=== PATIENT | male | born 1950 | race Two or more races ===

== ENCOUNTER 2016-07-21 12:15 | Outpatient (CLI) | payer MEDICARE, OTHER | END 2016-07-21 23:59 | disposition home or self-care (01) | LOC: WOU 12:15 | PROVIDERS: ATTEND Surgery | DX: E11.622 Type 2 diabetes mellitus with other skin ulcer (principal); L97.224 Non-pressure chronic ulcer of left calf with necrosis of bone; E11.42 Type 2 diabetes mellitus with diabetic polyneuropathy; E11.69 Type 2 diabetes mellitus with other specified complication; M86.462 Chronic osteomyelitis with draining sinus, left tibia and fibula; Z87.891 Personal history of nicotine dependence; I10 Essential (primary) hypertension; Z87.828 Personal history of other (healed) physical injury and trauma; E11.51 Type 2 diabetes mellitus with diabetic peripheral angiopathy without gangrene | CPT/HCPCS: 11044; A6402 ==

== ENCOUNTER 2016-07-22 10:01 | Outpatient (CLI) | payer MEDICARE, OTHER | END 2016-07-22 23:59 | disposition home or self-care (01) | LOC: LAB 10:01 | PROVIDERS: ATTEND Internal Medicine Infectious Disease | DX: R19.7 Diarrhea, unspecified (principal) ==

== ENCOUNTER 2016-07-28 12:50 | Outpatient (CLI) | payer MEDICARE, OTHER | END 2016-07-28 23:59 | disposition home or self-care (01) | LOC: WOU 12:50 | PROVIDERS: ATTEND Surgery | DX: E11.622 Type 2 diabetes mellitus with other skin ulcer (principal); L97.224 Non-pressure chronic ulcer of left calf with necrosis of bone; E11.42 Type 2 diabetes mellitus with diabetic polyneuropathy; E11.69 Type 2 diabetes mellitus with other specified complication; M86.462 Chronic osteomyelitis with draining sinus, left tibia and fibula; Z89.512 Acquired absence of left leg below knee; Z87.891 Personal history of nicotine dependence; S81.802S Unspecified open wound, left lower leg, sequela; X95.9XXS Assault by unspecified firearm discharge, sequela; Z18.10 Retained metal fragments, unspecified | CPT/HCPCS: 15271; A6402 ==

== ENCOUNTER 2016-08-04 10:24 | Outpatient (CLI) | payer MEDICARE, OTHER | END 2016-08-04 23:59 | disposition home or self-care (01) | LOC: WOU 10:24 | PROVIDERS: ATTEND Surgery | DX: E11.622 Type 2 diabetes mellitus with other skin ulcer (principal); L97.224 Non-pressure chronic ulcer of left calf with necrosis of bone; E11.42 Type 2 diabetes mellitus with diabetic polyneuropathy; E11.69 Type 2 diabetes mellitus with other specified complication; M86.462 Chronic osteomyelitis with draining sinus, left tibia and fibula; I10 Essential (primary) hypertension; H40.9 Unspecified glaucoma; Z89.512 Acquired absence of left leg below knee | CPT/HCPCS: 15271; A6402; Q4131 ==

== ENCOUNTER 2016-08-11 10:50 | Outpatient (CLI) | payer MEDICARE, OTHER | END 2016-08-11 23:59 | disposition home or self-care (01) | LOC: WOU 10:50 | PROVIDERS: ATTEND Surgery | DX: T87.89 Other complications of amputation stump (principal); E11.622 Type 2 diabetes mellitus with other skin ulcer; L97.224 Non-pressure chronic ulcer of left calf with necrosis of bone; E11.42 Type 2 diabetes mellitus with diabetic polyneuropathy; E11.69 Type 2 diabetes mellitus with other specified complication; M86.462 Chronic osteomyelitis with draining sinus, left tibia and fibula; Z89.512 Acquired absence of left leg below knee; I10 Essential (primary) hypertension; Z87.891 Personal history of nicotine dependence; Z18.10 Retained metal fragments, unspecified; B95.61 Methicillin susceptible Staphylococcus aureus infection as the cause of diseases classified elsewhere; B96.89 Other specified bacterial agents as the cause of diseases classified elsewhere | CPT/HCPCS: 15271; A6402; Q4131 ×2 ==

== ENCOUNTER 2016-08-18 12:56 | Outpatient (CLI) | payer MEDICARE, OTHER | END 2016-08-18 23:59 | disposition home or self-care (01) | LOC: WOU 12:56 | PROVIDERS: ATTEND Surgery | DX: E11.622 Type 2 diabetes mellitus with other skin ulcer (principal); L97.824 Non-pressure chronic ulcer of other part of left lower leg with necrosis of bone; Z89.512 Acquired absence of left leg below knee; I10 Essential (primary) hypertension; Z87.828 Personal history of other (healed) physical injury and trauma; Z87.891 Personal history of nicotine dependence; E11.9 Type 2 diabetes mellitus without complications; M86.462 Chronic osteomyelitis with draining sinus, left tibia and fibula; E11.51 Type 2 diabetes mellitus with diabetic peripheral angiopathy without gangrene | CPT/HCPCS: 15271; A6402; Q4131 ×2 ==

== ENCOUNTER 2016-08-25 12:37 | Outpatient (CLI) | payer MEDICARE, OTHER | END 2016-08-25 23:59 | disposition home or self-care (01) | LOC: WOU 12:37 | PROVIDERS: ATTEND Surgery | DX: E11.622 Type 2 diabetes mellitus with other skin ulcer (principal); L97.224 Non-pressure chronic ulcer of left calf with necrosis of bone; E11.42 Type 2 diabetes mellitus with diabetic polyneuropathy; E11.69 Type 2 diabetes mellitus with other specified complication; M86.462 Chronic osteomyelitis with draining sinus, left tibia and fibula; Z89.512 Acquired absence of left leg below knee; Z87.891 Personal history of nicotine dependence | CPT/HCPCS: 11044; A6402 ==

== ENCOUNTER 2016-09-01 12:40 | Outpatient (CLI) | payer MEDICARE, OTHER | END 2016-09-01 23:59 | disposition home or self-care (01) | LOC: WOU 12:40 | PROVIDERS: ATTEND Surgery | DX: E11.622 Type 2 diabetes mellitus with other skin ulcer (principal); L97.824 Non-pressure chronic ulcer of other part of left lower leg with necrosis of bone; Z89.512 Acquired absence of left leg below knee; Z87.891 Personal history of nicotine dependence; E11.69 Type 2 diabetes mellitus with other specified complication; M86.462 Chronic osteomyelitis with draining sinus, left tibia and fibula; I10 Essential (primary) hypertension; Z18.10 Retained metal fragments, unspecified; B95.61 Methicillin susceptible Staphylococcus aureus infection as the cause of diseases classified elsewhere; B96.89 Other specified bacterial agents as the cause of diseases classified elsewhere | CPT/HCPCS: 11044; A6402 ==

== ENCOUNTER 2016-09-08 11:36 | Outpatient (CLI) | payer MEDICARE, OTHER | END 2016-09-08 23:59 | disposition home or self-care (01) | DX: E11.622 Type 2 diabetes mellitus with other skin ulcer (principal); L97.224 Non-pressure chronic ulcer of left calf with necrosis of bone; Z89.512 Acquired absence of left leg below knee; E11.42 Type 2 diabetes mellitus with diabetic polyneuropathy; E11.69 Type 2 diabetes mellitus with other specified complication; T14.90 Injury, unspecified; X95.9XXS Assault by unspecified firearm discharge, sequela; Z18.10 Retained metal fragments, unspecified; Z87.891 Personal history of nicotine dependence; I10 Essential (primary) hypertension; M86.462 Chronic osteomyelitis with draining sinus, left tibia and fibula; E11.51 Type 2 diabetes mellitus with diabetic peripheral angiopathy without gangrene | CPT/HCPCS: 11044; A6402 ==

== ENCOUNTER 2016-09-12 10:31 | Outpatient (CLI) | payer MEDICARE, OTHER ==
[2016-09-12 10:58] LABS: BASOPHILS % (AUTO) 0.3 % (0.0-2.0); DIFF TOTAL % 100 %; EOSINOPHILS # (AUTO) 0.1 /CMM (0.0-0.7); HEMATOCRIT 38 % (39-51); HEMOGLOBIN 12.6 g/dL (13.5-17.5); LYMPHOCYTES # (AUTO) 1.3 /CMM (0.8-4.8); LYMPHOCYTES % (AUTO) 21.9 % (20.0-44.0); MEAN CORPUSCULAR HEMOGLOBIN 30 PG (26.0-33.0); MEAN CORPUSCULAR HGB CONC 33 g/dl (31.0-36.0); MEAN CORPUSCULAR VOLUME 91 fL (80-96); MONOCYTES # (AUTO) 0.3 /CMM (0.1-1.30); MONOCYTES % (AUTO) 5.2 % (2.0-12.0); NEUTROPHILS # (AUTO) 4.4 /CMM (1.8-8.9); NEUTROPHILS % (AUTO) 71.6 % (43.0-81.0); PLATELET COUNT (AUTO) 230 /CMM (150-450); RED BLOOD CELL COUNT(AUTO) 4.19 MIL/uL (4.5-6.0); WHITE BLOOD COUNT (AUTO) 6.1 K/uL (4.3-11.0)
[2016-09-12 11:12] LABS: ALBUMIN 3.9 g/dL (3.4-5.0); BILIRUBIN,TOTAL 0.5 mg/dL (0.2-1.0); CALCIUM, SERUM 9.1 mg/dL (8.5-10.1); POTASSIUM 4.8 mmol/L (3.5-5.1); TOTAL PROTEIN, SERUM 6.9 g/dL (6.4-8.2)
[2016-09-12 11:16] LABS: INR 0.99 (0.87-1.13); PROTHROMBIN TIME 10.7 SECS (9.5-12.7)
== END 2016-09-12 23:59 | disposition home or self-care (01) ==
LOC: LAB 10:31
PROVIDERS: ATTEND Surgery
DX: Z01.818 Encounter for other preprocedural examination (principal); T81.89XA Other complications of procedures, not elsewhere classified, initial encounter
CPT/HCPCS: 36415; 71020-TC; 80053-TC; 85025-TC; 85730-TC

== ENCOUNTER 2016-09-12 12:50 | Outpatient (CLI) | payer MEDICARE, OTHER | END 2016-09-12 23:59 | disposition home or self-care (01) | LOC: WOU 12:50 | PROVIDERS: ATTEND Surgery | DX: E11.622 Type 2 diabetes mellitus with other skin ulcer (principal); L97.224 Non-pressure chronic ulcer of left calf with necrosis of bone; E11.42 Type 2 diabetes mellitus with diabetic polyneuropathy; E11.69 Type 2 diabetes mellitus with other specified complication; M86.462 Chronic osteomyelitis with draining sinus, left tibia and fibula; T14.90 Injury, unspecified; X95.9XXS Assault by unspecified firearm discharge, sequela; Z18.10 Retained metal fragments, unspecified; Z87.891 Personal history of nicotine dependence; I10 Essential (primary) hypertension; E11.51 Type 2 diabetes mellitus with diabetic peripheral angiopathy without gangrene | CPT/HCPCS: 11044; A6402 ==

== ENCOUNTER 2016-09-15 12:54 | Outpatient (CLI) | payer MEDICARE, OTHER | END 2016-09-15 23:59 | disposition home or self-care (01) | LOC: WOU 12:54 | PROVIDERS: ATTEND Surgery | DX: E11.622 Type 2 diabetes mellitus with other skin ulcer (principal); L97.224 Non-pressure chronic ulcer of left calf with necrosis of bone; E11.42 Type 2 diabetes mellitus with diabetic polyneuropathy; E11.69 Type 2 diabetes mellitus with other specified complication; M86.462 Chronic osteomyelitis with draining sinus, left tibia and fibula; T14.90 Injury, unspecified; X95.9XXS Assault by unspecified firearm discharge, sequela; Z18.10 Retained metal fragments, unspecified; Z87.891 Personal history of nicotine dependence; I10 Essential (primary) hypertension; Z89.512 Acquired absence of left leg below knee; K11.20 Sialoadenitis, unspecified; E11.51 Type 2 diabetes mellitus with diabetic peripheral angiopathy without gangrene | CPT/HCPCS: 11044; A6402 ==

== ENCOUNTER 2016-09-22 12:31 | Outpatient (CLI) | payer MEDICARE, OTHER | END 2016-09-22 23:59 | disposition home or self-care (01) | LOC: WOU 12:31 | PROVIDERS: ATTEND Surgery | DX: E11.622 Type 2 diabetes mellitus with other skin ulcer (principal); L97.224 Non-pressure chronic ulcer of left calf with necrosis of bone; E11.42 Type 2 diabetes mellitus with diabetic polyneuropathy; E11.69 Type 2 diabetes mellitus with other specified complication; M86.462 Chronic osteomyelitis with draining sinus, left tibia and fibula; T14.90 Injury, unspecified; X95.9XXS Assault by unspecified firearm discharge, sequela; Z18.10 Retained metal fragments, unspecified; Z87.891 Personal history of nicotine dependence; I10 Essential (primary) hypertension; Z89.512 Acquired absence of left leg below knee; K11.20 Sialoadenitis, unspecified; E11.51 Type 2 diabetes mellitus with diabetic peripheral angiopathy without gangrene; Z79.02 Long term (current) use of antithrombotics/antiplatelets; Z79.899 Other long term (current) drug therapy | CPT/HCPCS: 11044; A6402 ==

== ENCOUNTER 2016-09-27 10:32 | Outpatient (CLI) | payer MEDICARE, OTHER ==
[2016-09-27 11:07] LABS: BASOPHILS % (AUTO) 0.1 % (0.0-2.0); DIFF TOTAL % 100 %; EOSINOPHILS # (AUTO) 0.1 /CMM (0.0-0.7); EOSINOPHILS % (AUTO) 1.1 % (0.0-6.0); HEMATOCRIT 38 % (39-51); HEMOGLOBIN 12.5 g/dL (13.5-17.5); LYMPHOCYTES # (AUTO) 1.4 /CMM (0.8-4.8); LYMPHOCYTES % (AUTO) 21.5 % (20.0-44.0); MEAN CORPUSCULAR HEMOGLOBIN 30 PG (26.0-33.0); MEAN CORPUSCULAR HGB CONC 33 g/dl (31.0-36.0); MEAN CORPUSCULAR VOLUME 92 fL (80-96); MONOCYTES # (AUTO) 0.3 /CMM (0.1-1.30); MONOCYTES % (AUTO) 4.3 % (2.0-12.0); NEUTROPHILS # (AUTO) 4.6 /CMM (1.8-8.9); PLATELET COUNT (AUTO) 222 /CMM (150-450); RED BLOOD CELL COUNT(AUTO) 4.15 MIL/uL (4.5-6.0); WHITE BLOOD COUNT (AUTO) 6.3 K/uL (4.3-11.0)
[2016-09-27 11:15] LABS: CALCIUM, SERUM 9.2 mg/dL (8.5-10.1); CREATININE 1.1 mg/dL (0.6-1.3)
[2016-09-27 11:38] LABS: PROTHROMBIN TIME 10.8 SECS (9.5-12.7)
== END 2016-09-27 23:59 | disposition home or self-care (01) ==
LOC: LAB 10:32
PROVIDERS: ATTEND Surgery
DX: T81.89XA Other complications of procedures, not elsewhere classified, initial encounter (principal)
CPT/HCPCS: 36415; 80048-TC; 85025-TC; 85610-TC; 85730-TC

== ENCOUNTER 2016-09-29 07:35 | Day surgery (SDC) | payer MEDICARE, OTHER | END 2016-09-29 13:00 | disposition home or self-care (01) | LOC: DS 07:35 | PROVIDERS: ATTEND Surgery | DX: T87.81 Dehiscence of amputation stump (principal); M86.8X6 Other osteomyelitis, lower leg; Z89.512 Acquired absence of left leg below knee; I10 Essential (primary) hypertension | CPT/HCPCS: 27884; A6402 ×2; J1100; J2405; J2704; J3490 ×2 ==

== ENCOUNTER 2016-10-03 11:11 | Outpatient (CLI) | payer MEDICARE, OTHER | END 2016-10-03 23:59 | disposition home or self-care (01) | LOC: WOU 11:11 | PROVIDERS: ATTEND Surgery | DX: T87.81 Dehiscence of amputation stump (principal); E11.622 Type 2 diabetes mellitus with other skin ulcer; E11.42 Type 2 diabetes mellitus with diabetic polyneuropathy; E11.69 Type 2 diabetes mellitus with other specified complication; M86.462 Chronic osteomyelitis with draining sinus, left tibia and fibula; T14.90 Injury, unspecified; X95.9XXS Assault by unspecified firearm discharge, sequela; Z18.10 Retained metal fragments, unspecified; Z87.891 Personal history of nicotine dependence; E11.51 Type 2 diabetes mellitus with diabetic peripheral angiopathy without gangrene; Z79.02 Long term (current) use of antithrombotics/antiplatelets; Z79.899 Other long term (current) drug therapy; L97.224 Non-pressure chronic ulcer of left calf with necrosis of bone | CPT/HCPCS: 11043; A6402 ==

== ENCOUNTER 2016-10-10 10:15 | Outpatient (CLI) | payer MEDICARE, OTHER | END 2016-10-10 23:59 | disposition home or self-care (01) | LOC: WOU 10:15 | PROVIDERS: ATTEND Surgery | DX: T87.81 Dehiscence of amputation stump (principal); T86.828 Other complications of skin graft (allograft) (autograft); E11.622 Type 2 diabetes mellitus with other skin ulcer; L97.224 Non-pressure chronic ulcer of left calf with necrosis of bone; E11.42 Type 2 diabetes mellitus with diabetic polyneuropathy; E11.69 Type 2 diabetes mellitus with other specified complication; M86.462 Chronic osteomyelitis with draining sinus, left tibia and fibula; Z87.891 Personal history of nicotine dependence; T14.90 Injury, unspecified; X95.9XXS Assault by unspecified firearm discharge, sequela; Z18.10 Retained metal fragments, unspecified; Z79.02 Long term (current) use of antithrombotics/antiplatelets; Z79.899 Other long term (current) drug therapy; Z89.612 Acquired absence of left leg above knee; I10 Essential (primary) hypertension | CPT/HCPCS: 11044; A6253; A6402 ==

== ENCOUNTER 2016-10-17 12:53 | Outpatient (CLI) | payer MEDICARE, OTHER | END 2016-10-17 23:59 | disposition home or self-care (01) | LOC: WOU 12:53 | PROVIDERS: ATTEND Surgery | DX: T87.81 Dehiscence of amputation stump (principal); T86.828 Other complications of skin graft (allograft) (autograft); E11.622 Type 2 diabetes mellitus with other skin ulcer; L97.224 Non-pressure chronic ulcer of left calf with necrosis of bone; E11.42 Type 2 diabetes mellitus with diabetic polyneuropathy; E11.69 Type 2 diabetes mellitus with other specified complication; M86.462 Chronic osteomyelitis with draining sinus, left tibia and fibula; Z87.891 Personal history of nicotine dependence; T14.90 Injury, unspecified; X95.9XXS Assault by unspecified firearm discharge, sequela; Z18.10 Retained metal fragments, unspecified; Z79.02 Long term (current) use of antithrombotics/antiplatelets; Z79.899 Other long term (current) drug therapy; Z89.612 Acquired absence of left leg above knee; I10 Essential (primary) hypertension; E11.51 Type 2 diabetes mellitus with diabetic peripheral angiopathy without gangrene | CPT/HCPCS: 11044; A6402 ==

== ENCOUNTER 2016-10-24 12:55 | Outpatient (CLI) | payer MEDICARE, OTHER | END 2016-10-24 23:59 | disposition home or self-care (01) | LOC: WOU 12:55 | PROVIDERS: ATTEND Surgery | DX: T86.828 Other complications of skin graft (allograft) (autograft) (principal); T87.81 Dehiscence of amputation stump; Z89.512 Acquired absence of left leg below knee; Z87.891 Personal history of nicotine dependence; E11.42 Type 2 diabetes mellitus with diabetic polyneuropathy; T14.90 Injury, unspecified; X95.9XXS Assault by unspecified firearm discharge, sequela; Z18.10 Retained metal fragments, unspecified; Z79.02 Long term (current) use of antithrombotics/antiplatelets; I10 Essential (primary) hypertension; E11.51 Type 2 diabetes mellitus with diabetic peripheral angiopathy without gangrene; Z86.14 Personal history of Methicillin resistant Staphylococcus aureus infection; E11.9 Type 2 diabetes mellitus without complications; M86.462 Chronic osteomyelitis with draining sinus, left tibia and fibula; E11.622 Type 2 diabetes mellitus with other skin ulcer; L97.224 Non-pressure chronic ulcer of left calf with necrosis of bone | CPT/HCPCS: 11044; 87070; 87075; 87077; A6402 ==

== ENCOUNTER 2016-10-27 13:00 | Outpatient (CLI) | payer MEDICARE, OTHER | END 2016-10-27 23:59 | disposition home or self-care (01) | LOC: WOU 13:00 | PROVIDERS: ATTEND Surgery | DX: T87.81 Dehiscence of amputation stump (principal); T86.828 Other complications of skin graft (allograft) (autograft); E11.622 Type 2 diabetes mellitus with other skin ulcer; L97.224 Non-pressure chronic ulcer of left calf with necrosis of bone; E11.42 Type 2 diabetes mellitus with diabetic polyneuropathy; E11.69 Type 2 diabetes mellitus with other specified complication; M86.462 Chronic osteomyelitis with draining sinus, left tibia and fibula; Z89.512 Acquired absence of left leg below knee; Z87.891 Personal history of nicotine dependence; T14.90 Injury, unspecified; X95.9XXS Assault by unspecified firearm discharge, sequela; Z18.10 Retained metal fragments, unspecified; Z79.02 Long term (current) use of antithrombotics/antiplatelets; I10 Essential (primary) hypertension; Z86.14 Personal history of Methicillin resistant Staphylococcus aureus infection | CPT/HCPCS: 11044; A6197 ×3; A6402 ==

== ENCOUNTER 2016-10-28 13:59 | Outpatient (CLI) | payer MEDICARE, OTHER | END 2016-10-28 23:59 | disposition home or self-care (01) | LOC: WOU 13:59 | PROVIDERS: ATTEND Internal Medicine Infectious Disease | DX: E11.69 Type 2 diabetes mellitus with other specified complication (principal); M86.662 Other chronic osteomyelitis, left tibia and fibula; B95.62 Methicillin resistant Staphylococcus aureus infection as the cause of diseases classified elsewhere; M89.762 Major osseous defect, left lower leg; Z89.512 Acquired absence of left leg below knee; T14.90 Injury, unspecified; W34.00XS Accidental discharge from unspecified firearms or gun, sequela; E11.39 Type 2 diabetes mellitus with other diabetic ophthalmic complication; H40.9 Unspecified glaucoma; I10 Essential (primary) hypertension | CPT/HCPCS: A6197; A6402; G0463 ==

== ENCOUNTER 2016-11-03 13:40 | Outpatient (CLI) | payer MEDICARE, OTHER | END 2016-11-03 23:59 | disposition home or self-care (01) | LOC: WOU 13:40 | PROVIDERS: ATTEND Surgery | DX: T87.81 Dehiscence of amputation stump (principal); T86.828 Other complications of skin graft (allograft) (autograft); E11.622 Type 2 diabetes mellitus with other skin ulcer; L97.224 Non-pressure chronic ulcer of left calf with necrosis of bone; E11.42 Type 2 diabetes mellitus with diabetic polyneuropathy; E11.69 Type 2 diabetes mellitus with other specified complication; M86.462 Chronic osteomyelitis with draining sinus, left tibia and fibula; Z89.512 Acquired absence of left leg below knee; Z87.891 Personal history of nicotine dependence; T14.90 Injury, unspecified; X95.9XXS Assault by unspecified firearm discharge, sequela; Z18.10 Retained metal fragments, unspecified; Z79.02 Long term (current) use of antithrombotics/antiplatelets; I10 Essential (primary) hypertension; Z86.14 Personal history of Methicillin resistant Staphylococcus aureus infection; E11.51 Type 2 diabetes mellitus with diabetic peripheral angiopathy without gangrene | CPT/HCPCS: 11044; A6197; A6402 ==

== ENCOUNTER 2016-11-10 13:28 | Outpatient (CLI) | payer MEDICARE, OTHER | END 2016-11-10 23:59 | disposition home or self-care (01) | LOC: WOU 13:28 | PROVIDERS: ATTEND Surgery | DX: T87.81 Dehiscence of amputation stump (principal); T86.828 Other complications of skin graft (allograft) (autograft); E11.622 Type 2 diabetes mellitus with other skin ulcer; L97.224 Non-pressure chronic ulcer of left calf with necrosis of bone; E11.42 Type 2 diabetes mellitus with diabetic polyneuropathy; E11.69 Type 2 diabetes mellitus with other specified complication; M86.462 Chronic osteomyelitis with draining sinus, left tibia and fibula; Z89.512 Acquired absence of left leg below knee; Z87.891 Personal history of nicotine dependence; T14.90 Injury, unspecified; X95.9XXS Assault by unspecified firearm discharge, sequela; Z18.10 Retained metal fragments, unspecified; Z79.02 Long term (current) use of antithrombotics/antiplatelets; I10 Essential (primary) hypertension; Z86.14 Personal history of Methicillin resistant Staphylococcus aureus infection; E11.51 Type 2 diabetes mellitus with diabetic peripheral angiopathy without gangrene | CPT/HCPCS: 11044; A6197; A6402 ==

== ENCOUNTER 2016-11-17 12:57 | Outpatient (CLI) | payer MEDICARE, OTHER | END 2016-11-17 23:59 | disposition home or self-care (01) | LOC: WOU 12:57 | PROVIDERS: ATTEND Surgery | DX: T87.81 Dehiscence of amputation stump (principal); E11.622 Type 2 diabetes mellitus with other skin ulcer; L97.224 Non-pressure chronic ulcer of left calf with necrosis of bone; E11.42 Type 2 diabetes mellitus with diabetic polyneuropathy; E11.69 Type 2 diabetes mellitus with other specified complication; M86.462 Chronic osteomyelitis with draining sinus, left tibia and fibula; Z89.512 Acquired absence of left leg below knee; Z87.891 Personal history of nicotine dependence; T14.90 Injury, unspecified; X95.9XXS Assault by unspecified firearm discharge, sequela; Z18.10 Retained metal fragments, unspecified; Z79.02 Long term (current) use of antithrombotics/antiplatelets; I10 Essential (primary) hypertension; E11.51 Type 2 diabetes mellitus with diabetic peripheral angiopathy without gangrene | CPT/HCPCS: 11044; A6197; A6402 ==

== ENCOUNTER → 2016-11-24 | Outpatient (CLI) | payer MEDICARE, OTHER | END | disposition home or self-care (01) | LOC: WOU 10:43 | PROVIDERS: ATTEND Surgery | DX: T87.81 Dehiscence of amputation stump (principal); T86.828 Other complications of skin graft (allograft) (autograft); E11.622 Type 2 diabetes mellitus with other skin ulcer; L97.224 Non-pressure chronic ulcer of left calf with necrosis of bone; E11.69 Type 2 diabetes mellitus with other specified complication; M86.462 Chronic osteomyelitis with draining sinus, left tibia and fibula; Z89.512 Acquired absence of left leg below knee; Z87.891 Personal history of nicotine dependence; T14.90 Injury, unspecified; X95.9XXS Assault by unspecified firearm discharge, sequela; Z18.10 Retained metal fragments, unspecified; Z79.02 Long term (current) use of antithrombotics/antiplatelets; I10 Essential (primary) hypertension; E11.51 Type 2 diabetes mellitus with diabetic peripheral angiopathy without gangrene | CPT/HCPCS: 11044; A6197; A6402 ×2 ==

== ENCOUNTER 2016-12-01 13:55 | Outpatient (CLI) | payer MEDICARE, OTHER | END 2016-12-01 23:59 | disposition home or self-care (01) | LOC: WOU 13:55 | PROVIDERS: ATTEND Surgery | DX: T87.81 Dehiscence of amputation stump (principal); T86.828 Other complications of skin graft (allograft) (autograft); E11.622 Type 2 diabetes mellitus with other skin ulcer; L97.422 Non-pressure chronic ulcer of left heel and midfoot with fat layer exposed; E11.42 Type 2 diabetes mellitus with diabetic polyneuropathy; E11.69 Type 2 diabetes mellitus with other specified complication; M86.462 Chronic osteomyelitis with draining sinus, left tibia and fibula; Z89.512 Acquired absence of left leg below knee; Z87.891 Personal history of nicotine dependence; T14.90 Injury, unspecified; X95.9XXS Assault by unspecified firearm discharge, sequela; Z18.10 Retained metal fragments, unspecified; Z79.02 Long term (current) use of antithrombotics/antiplatelets; I10 Essential (primary) hypertension; E11.51 Type 2 diabetes mellitus with diabetic peripheral angiopathy without gangrene | CPT/HCPCS: 11044; A6197; A6402; G0277 ==

== ENCOUNTER 2016-12-08 12:40 | Outpatient (CLI) | payer MEDICARE, OTHER | END 2016-12-08 23:59 | disposition home or self-care (01) | LOC: WOU 12:40 | PROVIDERS: ATTEND Surgery | DX: T87.81 Dehiscence of amputation stump (principal); T86.828 Other complications of skin graft (allograft) (autograft); E11.622 Type 2 diabetes mellitus with other skin ulcer; E11.42 Type 2 diabetes mellitus with diabetic polyneuropathy; E11.69 Type 2 diabetes mellitus with other specified complication; M86.462 Chronic osteomyelitis with draining sinus, left tibia and fibula; Z89.512 Acquired absence of left leg below knee; Z87.891 Personal history of nicotine dependence; T14.90 Injury, unspecified; X95.9XXS Assault by unspecified firearm discharge, sequela; Z18.10 Retained metal fragments, unspecified; Z79.02 Long term (current) use of antithrombotics/antiplatelets; I10 Essential (primary) hypertension; E11.51 Type 2 diabetes mellitus with diabetic peripheral angiopathy without gangrene; L97.224 Non-pressure chronic ulcer of left calf with necrosis of bone | CPT/HCPCS: 11044; A6197; A6402 ==

== ENCOUNTER 2016-12-13 13:50 | Outpatient (CLI) | payer MEDICARE, OTHER ==
[2016-12-13 15:53] LABS: HEMATOCRIT 30 % (39-51); HEMOGLOBIN 10.1 g/dL (13.5-17.5); LYMPHOCYTES % (AUTO) 21.1 % (20.0-44.0); MEAN CORPUSCULAR HEMOGLOBIN 30 PG (26.0-33.0); MEAN CORPUSCULAR HGB CONC 34 g/dl (31.0-36.0); MEAN CORPUSCULAR VOLUME 88 fL (80-96); NEUTROPHILS % (AUTO) 70.7 % (43.0-81.0); PLATELET COUNT (AUTO) 117 /CMM (150-450); RDW COEFFICIENT OF VARIATION 14.9 (11.5-15.0); RED BLOOD CELL COUNT(AUTO) 3.38 MIL/uL (4.5-6.0); WHITE BLOOD COUNT (AUTO) 4.7 K/uL (4.3-11.0)
[2016-12-13 15:54] LABS: BASOPHILS % (AUTO) 0.4 % (0.0-2.0); EOSINOPHILS # (AUTO) 0.1 /CMM (0.0-0.7); EOSINOPHILS % (AUTO) 1.2 % (0.0-6.0); MONOCYTES # (AUTO) 0.3 /CMM (0.1-1.30); MONOCYTES % (AUTO) 6.6 % (2.0-12.0); NEUTROPHILS # (AUTO) 3.3 /CMM (1.8-8.9)
== END 2016-12-13 23:59 | disposition home or self-care (01) ==
LOC: WOU 13:50
PROVIDERS: ATTEND Internal Medicine Infectious Disease
DX: T87.44 Infection of amputation stump, left lower extremity (principal); M86.68 Other chronic osteomyelitis, other site; Z89.512 Acquired absence of left leg below knee; H40.9 Unspecified glaucoma; Z86.14 Personal history of Methicillin resistant Staphylococcus aureus infection
CPT/HCPCS: 36415; 85025; A6197; A6402; G0463

== ENCOUNTER 2016-12-15 14:28 | Outpatient (CLI) | payer MEDICARE, OTHER | END 2016-12-15 23:59 | disposition home or self-care (01) | LOC: WOU 14:28 | PROVIDERS: ATTEND Surgery | DX: T87.81 Dehiscence of amputation stump (principal); E11.622 Type 2 diabetes mellitus with other skin ulcer; L97.224 Non-pressure chronic ulcer of left calf with necrosis of bone; E11.42 Type 2 diabetes mellitus with diabetic polyneuropathy; E11.69 Type 2 diabetes mellitus with other specified complication; M86.462 Chronic osteomyelitis with draining sinus, left tibia and fibula; Z89.512 Acquired absence of left leg below knee; E11.51 Type 2 diabetes mellitus with diabetic peripheral angiopathy without gangrene | CPT/HCPCS: 11044; A6197; A6402 ==

== ENCOUNTER 2016-12-22 12:55 | Outpatient (CLI) | payer MEDICARE, OTHER | END 2016-12-22 23:59 | disposition home or self-care (01) | LOC: WOU 12:55 | PROVIDERS: ATTEND Surgery | DX: T87.81 Dehiscence of amputation stump (principal); E11.622 Type 2 diabetes mellitus with other skin ulcer; L97.224 Non-pressure chronic ulcer of left calf with necrosis of bone; E11.42 Type 2 diabetes mellitus with diabetic polyneuropathy; E11.69 Type 2 diabetes mellitus with other specified complication; M86.462 Chronic osteomyelitis with draining sinus, left tibia and fibula; Z89.512 Acquired absence of left leg below knee; E11.51 Type 2 diabetes mellitus with diabetic peripheral angiopathy without gangrene; I10 Essential (primary) hypertension; Z87.891 Personal history of nicotine dependence; Z79.02 Long term (current) use of antithrombotics/antiplatelets; Z79.899 Other long term (current) drug therapy | CPT/HCPCS: 11044; A6197; A6402 ==

== ENCOUNTER 2016-12-23 09:19 | Outpatient (CLI) | payer MEDICARE, OTHER ==
[2016-12-23 09:58] LABS: BASOPHILS % (AUTO) 0.4 % (0.0-2.0); EOSINOPHILS # (AUTO) 0.1 /CMM (0.0-0.7); HEMATOCRIT 31 % (39-51); HEMOGLOBIN 10.3 g/dL (13.5-17.5); LYMPHOCYTES # (AUTO) 0.9 /CMM (0.8-4.8); LYMPHOCYTES % (AUTO) 19.5 % (20.0-44.0); MEAN CORPUSCULAR HEMOGLOBIN 30 PG (26.0-33.0); MEAN CORPUSCULAR HGB CONC 33 g/dl (31.0-36.0); MEAN CORPUSCULAR VOLUME 90 fL (80-96); MONOCYTES # (AUTO) 0.2 /CMM (0.1-1.30); NEUTROPHILS # (AUTO) 3.5 /CMM (1.8-8.9); NEUTROPHILS % (AUTO) 73.1 % (43.0-81.0); PLATELET COUNT (AUTO) 309 /CMM (150-450); RDW COEFFICIENT OF VARIATION 15.8 (11.5-15.0); RED BLOOD CELL COUNT(AUTO) 3.49 MIL/uL (4.5-6.0); WHITE BLOOD COUNT (AUTO) 4.8 K/uL (4.3-11.0)
== END 2016-12-23 23:59 | disposition home or self-care (01) ==
LOC: LAB 09:19
PROVIDERS: ATTEND Internal Medicine Infectious Disease
DX: M86.8X6 Other osteomyelitis, lower leg (principal)
CPT/HCPCS: 36415; 85025-TC

== ENCOUNTER 2016-12-26 09:29 | Outpatient (CLI) | payer MEDICARE, OTHER ==
[2016-12-26 09:57] LABS: BASOPHILS % (AUTO) 0.2 % (0.0-2.0); EOSINOPHILS # (AUTO) 0.1 /CMM (0.0-0.7); EOSINOPHILS % (AUTO) 1.7 % (0.0-6.0); HEMATOCRIT 30 % (39-51); HEMOGLOBIN 10.2 g/dL (13.5-17.5); LYMPHOCYTES # (AUTO) 0.8 /CMM (0.8-4.8); MEAN CORPUSCULAR HEMOGLOBIN 30 PG (26.0-33.0); MEAN CORPUSCULAR HGB CONC 34 g/dl (31.0-36.0); MEAN CORPUSCULAR VOLUME 89 fL (80-96); MONOCYTES # (AUTO) 0.2 /CMM (0.1-1.30); MONOCYTES % (AUTO) 4.9 % (2.0-12.0); NEUTROPHILS # (AUTO) 3.5 /CMM (1.8-8.9); NEUTROPHILS % (AUTO) 76.2 % (43.0-81.0); PLATELET COUNT (AUTO) 238 /CMM (150-450); RDW COEFFICIENT OF VARIATION 15.4 (11.5-15.0); RED BLOOD CELL COUNT(AUTO) 3.41 MIL/uL (4.5-6.0); WHITE BLOOD COUNT (AUTO) 4.6 K/uL (4.3-11.0)
== END 2016-12-26 23:59 | disposition home or self-care (01) ==
LOC: LAB 09:29
PROVIDERS: ATTEND Surgery
DX: E11.622 Type 2 diabetes mellitus with other skin ulcer (principal); M86.8X6 Other osteomyelitis, lower leg
CPT/HCPCS: 36415; 85025-TC

== ENCOUNTER 2016-12-29 14:00 | Outpatient (CLI) | payer MEDICARE, OTHER | END 2016-12-29 23:59 | disposition home or self-care (01) | LOC: WOU 14:00 | PROVIDERS: ATTEND Surgery | DX: T87.81 Dehiscence of amputation stump (principal); E11.622 Type 2 diabetes mellitus with other skin ulcer; L97.224 Non-pressure chronic ulcer of left calf with necrosis of bone; E11.42 Type 2 diabetes mellitus with diabetic polyneuropathy; E11.69 Type 2 diabetes mellitus with other specified complication; M86.462 Chronic osteomyelitis with draining sinus, left tibia and fibula; Z89.512 Acquired absence of left leg below knee; E11.51 Type 2 diabetes mellitus with diabetic peripheral angiopathy without gangrene; I10 Essential (primary) hypertension; Z87.891 Personal history of nicotine dependence; Z79.02 Long term (current) use of antithrombotics/antiplatelets; Z79.899 Other long term (current) drug therapy | CPT/HCPCS: 11044; A6197; A6402 ==

== ENCOUNTER 2017-01-05 13:55 | Outpatient (CLI) | payer MEDICARE, OTHER | END 2017-01-05 23:59 | disposition home or self-care (01) | LOC: WOU 13:55 | PROVIDERS: ATTEND Surgery | DX: T87.81 Dehiscence of amputation stump (principal); E11.69 Type 2 diabetes mellitus with other specified complication; M86.662 Other chronic osteomyelitis, left tibia and fibula; E11.622 Type 2 diabetes mellitus with other skin ulcer; L97.224 Non-pressure chronic ulcer of left calf with necrosis of bone; E11.42 Type 2 diabetes mellitus with diabetic polyneuropathy; Z89.512 Acquired absence of left leg below knee; B95.61 Methicillin susceptible Staphylococcus aureus infection as the cause of diseases classified elsewhere; B96.89 Other specified bacterial agents as the cause of diseases classified elsewhere | CPT/HCPCS: 11044; A6197; A6402 ==

== ENCOUNTER 2017-01-12 14:39 | Outpatient (CLI) | payer MEDICARE, OTHER ==
[2017-01-12 15:21] LABS: BASOPHILS % (AUTO) 0.1 % (0.0-2.0); EOSINOPHILS # (AUTO) 0.1 /CMM (0.0-0.7); EOSINOPHILS % (AUTO) 1.9 % (0.0-6.0); HEMATOCRIT 26 % (39-51); HEMOGLOBIN 8.5 g/dL (13.5-17.5); LYMPHOCYTES # (AUTO) 0.9 /CMM (0.8-4.8); LYMPHOCYTES % (AUTO) 17.2 % (20.0-44.0); MEAN CORPUSCULAR HEMOGLOBIN 29 PG (26.0-33.0); MEAN CORPUSCULAR HGB CONC 33 g/dl (31.0-36.0); MEAN CORPUSCULAR VOLUME 88 fL (80-96); MONOCYTES # (AUTO) 0.2 /CMM (0.1-1.30); MONOCYTES % (AUTO) 4.3 % (2.0-12.0); NEUTROPHILS # (AUTO) 4.1 /CMM (1.8-8.9); NEUTROPHILS % (AUTO) 76.5 % (43.0-81.0); PLATELET COUNT (AUTO) 146 /CMM (150-450); RDW COEFFICIENT OF VARIATION 15.4 (11.5-15.0); RED BLOOD CELL COUNT(AUTO) 2.94 MIL/uL (4.5-6.0); WHITE BLOOD COUNT (AUTO) 5.4 K/uL (4.3-11.0)
== END 2017-01-12 23:59 | disposition home or self-care (01) ==
LOC: WOU 14:39
PROVIDERS: ATTEND Surgery
DX: T87.81 Dehiscence of amputation stump (principal); E11.622 Type 2 diabetes mellitus with other skin ulcer; L97.224 Non-pressure chronic ulcer of left calf with necrosis of bone; E11.42 Type 2 diabetes mellitus with diabetic polyneuropathy; E11.69 Type 2 diabetes mellitus with other specified complication; M86.462 Chronic osteomyelitis with draining sinus, left tibia and fibula; Z89.512 Acquired absence of left leg below knee; I10 Essential (primary) hypertension; Z87.891 Personal history of nicotine dependence; Z79.02 Long term (current) use of antithrombotics/antiplatelets; Z79.899 Other long term (current) drug therapy; E11.51 Type 2 diabetes mellitus with diabetic peripheral angiopathy without gangrene
CPT/HCPCS: 11044; 36415; 84134; 85025; A6197; A6402

== ENCOUNTER 2017-01-19 13:57 | Outpatient (CLI) | payer MEDICARE, OTHER | END 2017-01-19 23:59 | disposition home or self-care (01) | LOC: WOU 13:57 | PROVIDERS: ATTEND Surgery | DX: T87.81 Dehiscence of amputation stump (principal); E11.622 Type 2 diabetes mellitus with other skin ulcer; L97.224 Non-pressure chronic ulcer of left calf with necrosis of bone; E11.42 Type 2 diabetes mellitus with diabetic polyneuropathy; E11.69 Type 2 diabetes mellitus with other specified complication; M86.462 Chronic osteomyelitis with draining sinus, left tibia and fibula; Z89.512 Acquired absence of left leg below knee; I10 Essential (primary) hypertension; Z87.891 Personal history of nicotine dependence; Z79.02 Long term (current) use of antithrombotics/antiplatelets; Z79.899 Other long term (current) drug therapy | CPT/HCPCS: 11044; A6197; A6402 ==

== ENCOUNTER 2017-01-26 13:40 | Outpatient (CLI) | payer MEDICARE, OTHER | END 2017-01-26 23:59 | disposition home or self-care (01) | LOC: WOU 13:40 | PROVIDERS: ATTEND Surgery | DX: T87.81 Dehiscence of amputation stump (principal); E11.622 Type 2 diabetes mellitus with other skin ulcer; L97.824 Non-pressure chronic ulcer of other part of left lower leg with necrosis of bone; E11.42 Type 2 diabetes mellitus with diabetic polyneuropathy; Z89.512 Acquired absence of left leg below knee; E11.69 Type 2 diabetes mellitus with other specified complication; M86.462 Chronic osteomyelitis with draining sinus, left tibia and fibula; T86.828 Other complications of skin graft (allograft) (autograft); E11.51 Type 2 diabetes mellitus with diabetic peripheral angiopathy without gangrene; I10 Essential (primary) hypertension; Z79.02 Long term (current) use of antithrombotics/antiplatelets | CPT/HCPCS: 11044; A6197; A6402 ==

== ENCOUNTER 2017-02-02 13:43 | Outpatient (CLI) | payer MEDICARE, OTHER | END 2017-02-02 23:59 | disposition home or self-care (01) | LOC: WOU 13:43 | PROVIDERS: ATTEND Surgery | DX: T87.81 Dehiscence of amputation stump (principal); E11.622 Type 2 diabetes mellitus with other skin ulcer; L97.824 Non-pressure chronic ulcer of other part of left lower leg with necrosis of bone; E11.42 Type 2 diabetes mellitus with diabetic polyneuropathy; Z89.512 Acquired absence of left leg below knee; E11.69 Type 2 diabetes mellitus with other specified complication; M86.462 Chronic osteomyelitis with draining sinus, left tibia and fibula; T86.828 Other complications of skin graft (allograft) (autograft); E11.51 Type 2 diabetes mellitus with diabetic peripheral angiopathy without gangrene; I10 Essential (primary) hypertension; Z79.02 Long term (current) use of antithrombotics/antiplatelets; D64.9 Anemia, unspecified; Z79.899 Other long term (current) drug therapy | CPT/HCPCS: 11044; A6402; A6197 ==

== ENCOUNTER 2017-02-09 13:43 | Outpatient (CLI) | payer MEDICARE, OTHER | END 2017-02-09 23:59 | disposition home or self-care (01) | LOC: WOU 13:43 | PROVIDERS: ATTEND Surgery | DX: T87.81 Dehiscence of amputation stump (principal); E11.622 Type 2 diabetes mellitus with other skin ulcer; L97.824 Non-pressure chronic ulcer of other part of left lower leg with necrosis of bone; E11.42 Type 2 diabetes mellitus with diabetic polyneuropathy; Z89.512 Acquired absence of left leg below knee; E11.69 Type 2 diabetes mellitus with other specified complication; M86.462 Chronic osteomyelitis with draining sinus, left tibia and fibula; T86.828 Other complications of skin graft (allograft) (autograft); E11.51 Type 2 diabetes mellitus with diabetic peripheral angiopathy without gangrene; I10 Essential (primary) hypertension; Z79.02 Long term (current) use of antithrombotics/antiplatelets; D64.9 Anemia, unspecified; Z79.899 Other long term (current) drug therapy | CPT/HCPCS: 11044; A6402 ==

== ENCOUNTER 2017-02-15 13:55 | Outpatient (CLI) | payer MEDICARE, OTHER | END 2017-02-15 23:59 | disposition home or self-care (01) | LOC: WOU 13:55 | PROVIDERS: ATTEND Internal Medicine Infectious Disease | DX: Z09 Encounter for follow-up examination after completed treatment for conditions other than malignant neoplasm (principal); Z89.512 Acquired absence of left leg below knee | CPT/HCPCS: A6197; A6402; G0463 ==

== ENCOUNTER 2017-02-23 13:08 | Outpatient (CLI) | payer MEDICARE, OTHER | END 2017-02-23 23:59 | disposition home or self-care (01) | LOC: WOU 13:08 | PROVIDERS: ATTEND Surgery | DX: T86.828 Other complications of skin graft (allograft) (autograft) (principal); E11.622 Type 2 diabetes mellitus with other skin ulcer; L97.224 Non-pressure chronic ulcer of left calf with necrosis of bone; E11.42 Type 2 diabetes mellitus with diabetic polyneuropathy; E11.69 Type 2 diabetes mellitus with other specified complication; M86.462 Chronic osteomyelitis with draining sinus, left tibia and fibula; Z89.512 Acquired absence of left leg below knee; Z87.891 Personal history of nicotine dependence; Z79.02 Long term (current) use of antithrombotics/antiplatelets | CPT/HCPCS: 11044; A6402 ==

== ENCOUNTER 2017-03-02 13:55 | Outpatient (CLI) | payer MEDICARE, OTHER | END 2017-03-02 23:59 | disposition home or self-care (01) | LOC: WOU 13:55 | PROVIDERS: ATTEND Surgery | DX: T87.81 Dehiscence of amputation stump (principal); T86.828 Other complications of skin graft (allograft) (autograft); E11.622 Type 2 diabetes mellitus with other skin ulcer; L97.224 Non-pressure chronic ulcer of left calf with necrosis of bone; E11.42 Type 2 diabetes mellitus with diabetic polyneuropathy; E11.69 Type 2 diabetes mellitus with other specified complication; M86.462 Chronic osteomyelitis with draining sinus, left tibia and fibula; Z89.512 Acquired absence of left leg below knee; Z87.891 Personal history of nicotine dependence; Z79.02 Long term (current) use of antithrombotics/antiplatelets; E11.51 Type 2 diabetes mellitus with diabetic peripheral angiopathy without gangrene | CPT/HCPCS: 11044; A6402 ==

== ENCOUNTER 2017-03-13 12:04 | Outpatient (CLI) | payer MEDICARE, OTHER | END 2017-03-13 23:59 | disposition home or self-care (01) | LOC: WOU 12:04 | PROVIDERS: ATTEND Surgery | DX: T87.81 Dehiscence of amputation stump (principal); T86.828 Other complications of skin graft (allograft) (autograft); E11.622 Type 2 diabetes mellitus with other skin ulcer; L97.224 Non-pressure chronic ulcer of left calf with necrosis of bone; E11.42 Type 2 diabetes mellitus with diabetic polyneuropathy; E11.69 Type 2 diabetes mellitus with other specified complication; M86.462 Chronic osteomyelitis with draining sinus, left tibia and fibula; Z89.512 Acquired absence of left leg below knee; Z87.891 Personal history of nicotine dependence; Z79.02 Long term (current) use of antithrombotics/antiplatelets; E11.51 Type 2 diabetes mellitus with diabetic peripheral angiopathy without gangrene | CPT/HCPCS: 11044; A6402 ==

== ENCOUNTER 2017-03-23 13:09 | Outpatient (CLI) | payer MEDICARE, OTHER | END 2017-03-23 23:59 | disposition home or self-care (01) | LOC: WOU 13:09 | PROVIDERS: ATTEND Surgery | DX: T87.81 Dehiscence of amputation stump (principal); T86.828 Other complications of skin graft (allograft) (autograft); E11.622 Type 2 diabetes mellitus with other skin ulcer; L97.224 Non-pressure chronic ulcer of left calf with necrosis of bone; E11.42 Type 2 diabetes mellitus with diabetic polyneuropathy; E11.69 Type 2 diabetes mellitus with other specified complication; M86.462 Chronic osteomyelitis with draining sinus, left tibia and fibula; Z89.512 Acquired absence of left leg below knee; Z87.891 Personal history of nicotine dependence; Z79.02 Long term (current) use of antithrombotics/antiplatelets; E11.51 Type 2 diabetes mellitus with diabetic peripheral angiopathy without gangrene | CPT/HCPCS: 11044; A6402 ==

== ENCOUNTER 2017-03-30 12:56 | Outpatient (CLI) | payer MEDICARE, OTHER | END 2017-03-30 23:59 | disposition home or self-care (01) | LOC: WOU 12:56 | PROVIDERS: ATTEND Surgery | DX: T87.81 Dehiscence of amputation stump (principal); T86.828 Other complications of skin graft (allograft) (autograft); E11.622 Type 2 diabetes mellitus with other skin ulcer; L97.224 Non-pressure chronic ulcer of left calf with necrosis of bone; E11.42 Type 2 diabetes mellitus with diabetic polyneuropathy; E11.69 Type 2 diabetes mellitus with other specified complication; M86.462 Chronic osteomyelitis with draining sinus, left tibia and fibula; Z89.512 Acquired absence of left leg below knee; Z87.891 Personal history of nicotine dependence; Z79.02 Long term (current) use of antithrombotics/antiplatelets; E11.51 Type 2 diabetes mellitus with diabetic peripheral angiopathy without gangrene | CPT/HCPCS: 11044; A6402 ==

== ENCOUNTER 2017-04-10 12:57 | Outpatient (CLI) | payer MEDICARE, OTHER | END 2017-04-10 23:59 | disposition home or self-care (01) | LOC: WOU 12:57 | PROVIDERS: ATTEND Surgery | DX: T87.81 Dehiscence of amputation stump (principal); T86.828 Other complications of skin graft (allograft) (autograft); E11.622 Type 2 diabetes mellitus with other skin ulcer; L97.224 Non-pressure chronic ulcer of left calf with necrosis of bone; E11.42 Type 2 diabetes mellitus with diabetic polyneuropathy; Z89.512 Acquired absence of left leg below knee; Z87.891 Personal history of nicotine dependence; Z79.02 Long term (current) use of antithrombotics/antiplatelets; E11.51 Type 2 diabetes mellitus with diabetic peripheral angiopathy without gangrene; E11.69 Type 2 diabetes mellitus with other specified complication; M86.462 Chronic osteomyelitis with draining sinus, left tibia and fibula | CPT/HCPCS: 11044; A6402 ==

== ENCOUNTER 2017-04-17 12:55 | Outpatient (CLI) | payer MEDICARE, OTHER | END 2017-04-17 23:59 | disposition home or self-care (01) | LOC: WOU 12:55 | PROVIDERS: ATTEND Surgery | DX: T87.81 Dehiscence of amputation stump (principal); T86.828 Other complications of skin graft (allograft) (autograft); E11.622 Type 2 diabetes mellitus with other skin ulcer; L97.224 Non-pressure chronic ulcer of left calf with necrosis of bone; E11.42 Type 2 diabetes mellitus with diabetic polyneuropathy; Z87.891 Personal history of nicotine dependence; Z89.512 Acquired absence of left leg below knee; E11.51 Type 2 diabetes mellitus with diabetic peripheral angiopathy without gangrene; E11.69 Type 2 diabetes mellitus with other specified complication; M86.462 Chronic osteomyelitis with draining sinus, left tibia and fibula | CPT/HCPCS: 11044; A6402 ==

== ENCOUNTER 2017-04-24 12:58 | Outpatient (CLI) | payer MEDICARE, OTHER | END 2017-04-24 23:59 | disposition home or self-care (01) | LOC: WOU 12:58 | PROVIDERS: ATTEND Surgery | DX: T87.81 Dehiscence of amputation stump (principal); T86.828 Other complications of skin graft (allograft) (autograft); E11.622 Type 2 diabetes mellitus with other skin ulcer; L97.224 Non-pressure chronic ulcer of left calf with necrosis of bone; E11.42 Type 2 diabetes mellitus with diabetic polyneuropathy; Z87.891 Personal history of nicotine dependence; Z89.512 Acquired absence of left leg below knee; E11.51 Type 2 diabetes mellitus with diabetic peripheral angiopathy without gangrene; E11.69 Type 2 diabetes mellitus with other specified complication; M86.462 Chronic osteomyelitis with draining sinus, left tibia and fibula; Z79.02 Long term (current) use of antithrombotics/antiplatelets | CPT/HCPCS: 11044; A6402 ==

== ENCOUNTER 2017-05-08 13:00 | Outpatient (CLI) | payer MEDICARE, OTHER | END 2017-05-08 23:59 | disposition home or self-care (01) | LOC: WOU 13:00 | PROVIDERS: ATTEND Surgery | DX: T87.81 Dehiscence of amputation stump (principal); T86.828 Other complications of skin graft (allograft) (autograft); E11.622 Type 2 diabetes mellitus with other skin ulcer; L97.224 Non-pressure chronic ulcer of left calf with necrosis of bone; E11.42 Type 2 diabetes mellitus with diabetic polyneuropathy; Z87.891 Personal history of nicotine dependence; Z89.512 Acquired absence of left leg below knee; E11.51 Type 2 diabetes mellitus with diabetic peripheral angiopathy without gangrene; E11.69 Type 2 diabetes mellitus with other specified complication; M86.462 Chronic osteomyelitis with draining sinus, left tibia and fibula; Z79.02 Long term (current) use of antithrombotics/antiplatelets; Z18.10 Retained metal fragments, unspecified | CPT/HCPCS: 11044; A6402 ==

== ENCOUNTER 2017-05-15 12:56 | Outpatient (CLI) | payer MEDICARE, OTHER | END 2017-05-15 23:59 | disposition home or self-care (01) | LOC: WOU 12:56 | PROVIDERS: ATTEND Surgery | DX: T87.81 Dehiscence of amputation stump (principal); T86.828 Other complications of skin graft (allograft) (autograft); E11.622 Type 2 diabetes mellitus with other skin ulcer; L97.224 Non-pressure chronic ulcer of left calf with necrosis of bone; E11.42 Type 2 diabetes mellitus with diabetic polyneuropathy; Z87.891 Personal history of nicotine dependence; Z89.512 Acquired absence of left leg below knee; E11.51 Type 2 diabetes mellitus with diabetic peripheral angiopathy without gangrene; E11.69 Type 2 diabetes mellitus with other specified complication; M86.462 Chronic osteomyelitis with draining sinus, left tibia and fibula; Z79.02 Long term (current) use of antithrombotics/antiplatelets; Z18.10 Retained metal fragments, unspecified | CPT/HCPCS: 11044; A6402 ×2 ==

== ENCOUNTER 2017-05-22 12:40 | Outpatient (CLI) | payer MEDICARE, OTHER | END 2017-05-22 23:59 | disposition home or self-care (01) | LOC: WOU 12:40 | PROVIDERS: ATTEND Surgery | DX: T87.81 Dehiscence of amputation stump (principal); T86.828 Other complications of skin graft (allograft) (autograft); E11.622 Type 2 diabetes mellitus with other skin ulcer; L97.224 Non-pressure chronic ulcer of left calf with necrosis of bone; E11.42 Type 2 diabetes mellitus with diabetic polyneuropathy; E11.69 Type 2 diabetes mellitus with other specified complication; M86.462 Chronic osteomyelitis with draining sinus, left tibia and fibula; Z89.512 Acquired absence of left leg below knee; Z87.891 Personal history of nicotine dependence; E11.51 Type 2 diabetes mellitus with diabetic peripheral angiopathy without gangrene; Z79.82 Long term (current) use of aspirin | CPT/HCPCS: 11044; A6402 ==

== ENCOUNTER 2017-05-29 12:52 | Outpatient (CLI) | payer MEDICARE, OTHER | END 2017-05-29 23:59 | disposition home or self-care (01) | LOC: WOU 12:52 | PROVIDERS: ATTEND Surgery | DX: T87.81 Dehiscence of amputation stump (principal); T86.828 Other complications of skin graft (allograft) (autograft); E11.622 Type 2 diabetes mellitus with other skin ulcer; L97.224 Non-pressure chronic ulcer of left calf with necrosis of bone; E11.42 Type 2 diabetes mellitus with diabetic polyneuropathy; E11.69 Type 2 diabetes mellitus with other specified complication; M86.462 Chronic osteomyelitis with draining sinus, left tibia and fibula; Z89.512 Acquired absence of left leg below knee; Z87.891 Personal history of nicotine dependence; Z79.02 Long term (current) use of antithrombotics/antiplatelets; Z79.899 Other long term (current) drug therapy | CPT/HCPCS: 11044; A6402 ==

== ENCOUNTER 2017-06-12 12:18 | Outpatient (CLI) | payer MEDICARE, OTHER | END 2017-06-12 23:59 | disposition home or self-care (01) | LOC: WOU 12:18 | PROVIDERS: ATTEND Surgery | DX: T87.81 Dehiscence of amputation stump (principal); E11.622 Type 2 diabetes mellitus with other skin ulcer; L97.224 Non-pressure chronic ulcer of left calf with necrosis of bone; E11.42 Type 2 diabetes mellitus with diabetic polyneuropathy; E11.69 Type 2 diabetes mellitus with other specified complication; M86.462 Chronic osteomyelitis with draining sinus, left tibia and fibula; Z89.512 Acquired absence of left leg below knee; Z87.891 Personal history of nicotine dependence; T86.828 Other complications of skin graft (allograft) (autograft); Z79.02 Long term (current) use of antithrombotics/antiplatelets; Z79.899 Other long term (current) drug therapy; E11.51 Type 2 diabetes mellitus with diabetic peripheral angiopathy without gangrene | CPT/HCPCS: 11044; A6402 ==

== ENCOUNTER 2017-06-22 12:20 | Outpatient (CLI) | payer MEDICARE, OTHER | END 2017-06-22 23:59 | disposition home or self-care (01) | LOC: WOU 12:20 | PROVIDERS: ATTEND Surgery | DX: T87.81 Dehiscence of amputation stump (principal); E11.622 Type 2 diabetes mellitus with other skin ulcer; L97.824 Non-pressure chronic ulcer of other part of left lower leg with necrosis of bone; E11.42 Type 2 diabetes mellitus with diabetic polyneuropathy; E11.69 Type 2 diabetes mellitus with other specified complication; M86.462 Chronic osteomyelitis with draining sinus, left tibia and fibula; Z89.512 Acquired absence of left leg below knee; I10 Essential (primary) hypertension; Z87.891 Personal history of nicotine dependence; Z18.10 Retained metal fragments, unspecified; Z79.02 Long term (current) use of antithrombotics/antiplatelets; T86.828 Other complications of skin graft (allograft) (autograft); E11.51 Type 2 diabetes mellitus with diabetic peripheral angiopathy without gangrene | CPT/HCPCS: 11044; A6402 ==

== ENCOUNTER 2017-06-29 11:15 | Outpatient (CLI) | payer MEDICARE, OTHER | END 2017-06-29 23:59 | disposition home or self-care (01) | LOC: WOU 11:15 | PROVIDERS: ATTEND Surgery | DX: T87.81 Dehiscence of amputation stump (principal); T86.828 Other complications of skin graft (allograft) (autograft); Z89.512 Acquired absence of left leg below knee; E11.42 Type 2 diabetes mellitus with diabetic polyneuropathy; E11.622 Type 2 diabetes mellitus with other skin ulcer; L97.224 Non-pressure chronic ulcer of left calf with necrosis of bone; E11.69 Type 2 diabetes mellitus with other specified complication; M86.462 Chronic osteomyelitis with draining sinus, left tibia and fibula; Z87.891 Personal history of nicotine dependence; E11.51 Type 2 diabetes mellitus with diabetic peripheral angiopathy without gangrene; Z79.02 Long term (current) use of antithrombotics/antiplatelets | CPT/HCPCS: 11044; A6402 ==

== ENCOUNTER 2017-07-06 12:53 | Outpatient (CLI) | payer MEDICARE, OTHER | END 2017-07-06 23:59 | disposition home or self-care (01) | LOC: WOU 12:53 | PROVIDERS: ATTEND Surgery | DX: T87.81 Dehiscence of amputation stump (principal); E11.622 Type 2 diabetes mellitus with other skin ulcer; L97.824 Non-pressure chronic ulcer of other part of left lower leg with necrosis of bone; E11.42 Type 2 diabetes mellitus with diabetic polyneuropathy; E11.69 Type 2 diabetes mellitus with other specified complication; M86.462 Chronic osteomyelitis with draining sinus, left tibia and fibula; Z89.512 Acquired absence of left leg below knee; I10 Essential (primary) hypertension; Z87.891 Personal history of nicotine dependence; Z18.10 Retained metal fragments, unspecified; Z79.02 Long term (current) use of antithrombotics/antiplatelets; E11.51 Type 2 diabetes mellitus with diabetic peripheral angiopathy without gangrene | CPT/HCPCS: 11044; A6402 ==

== ENCOUNTER 2017-07-13 10:55 | Outpatient (CLI) | payer MEDICARE, OTHER | END 2017-07-13 23:59 | disposition home or self-care (01) | LOC: WOU 10:55 | PROVIDERS: ATTEND Surgery | DX: T87.81 Dehiscence of amputation stump (principal); T86.828 Other complications of skin graft (allograft) (autograft); E11.622 Type 2 diabetes mellitus with other skin ulcer; L97.224 Non-pressure chronic ulcer of left calf with necrosis of bone; E11.42 Type 2 diabetes mellitus with diabetic polyneuropathy; E11.69 Type 2 diabetes mellitus with other specified complication; M86.462 Chronic osteomyelitis with draining sinus, left tibia and fibula; Z89.512 Acquired absence of left leg below knee; H40.9 Unspecified glaucoma; I10 Essential (primary) hypertension; Z87.891 Personal history of nicotine dependence; Z79.899 Other long term (current) drug therapy | CPT/HCPCS: 11044; A6402 ==

== ENCOUNTER 2017-07-20 12:05 | Outpatient (CLI) | payer MEDICARE, OTHER | END 2017-07-20 23:59 | disposition home or self-care (01) | LOC: WOU 12:05 | PROVIDERS: ATTEND Surgery | DX: T87.81 Dehiscence of amputation stump (principal); T86.828 Other complications of skin graft (allograft) (autograft); E11.622 Type 2 diabetes mellitus with other skin ulcer; L97.224 Non-pressure chronic ulcer of left calf with necrosis of bone; E11.42 Type 2 diabetes mellitus with diabetic polyneuropathy; E11.69 Type 2 diabetes mellitus with other specified complication; M86.462 Chronic osteomyelitis with draining sinus, left tibia and fibula; Z89.512 Acquired absence of left leg below knee; H40.9 Unspecified glaucoma; I10 Essential (primary) hypertension; Z87.891 Personal history of nicotine dependence; Z79.899 Other long term (current) drug therapy; E11.51 Type 2 diabetes mellitus with diabetic peripheral angiopathy without gangrene | CPT/HCPCS: 11044; A6402 ==

== ENCOUNTER 2017-07-27 13:00 | Outpatient (CLI) | payer MEDICARE, OTHER | END 2017-07-27 23:29 | disposition home or self-care (01) | LOC: WOU 13:00 | PROVIDERS: ATTEND Surgery | DX: T87.81 Dehiscence of amputation stump (principal); E11.622 Type 2 diabetes mellitus with other skin ulcer; L97.224 Non-pressure chronic ulcer of left calf with necrosis of bone; E11.42 Type 2 diabetes mellitus with diabetic polyneuropathy; E11.69 Type 2 diabetes mellitus with other specified complication; M86.462 Chronic osteomyelitis with draining sinus, left tibia and fibula; I10 Essential (primary) hypertension; H40.9 Unspecified glaucoma; Z79.02 Long term (current) use of antithrombotics/antiplatelets | CPT/HCPCS: 11044; A6402 ==

== ENCOUNTER 2017-08-03 10:43 | Outpatient (CLI) | payer MEDICARE, OTHER | END 2017-08-03 23:59 | disposition home or self-care (01) | LOC: WOU 10:43 | PROVIDERS: ATTEND Surgery | DX: T87.81 Dehiscence of amputation stump (principal); E11.622 Type 2 diabetes mellitus with other skin ulcer; L97.224 Non-pressure chronic ulcer of left calf with necrosis of bone; E11.42 Type 2 diabetes mellitus with diabetic polyneuropathy; E11.69 Type 2 diabetes mellitus with other specified complication; I10 Essential (primary) hypertension; M86.462 Chronic osteomyelitis with draining sinus, left tibia and fibula; H40.9 Unspecified glaucoma; Z79.02 Long term (current) use of antithrombotics/antiplatelets; Z89.512 Acquired absence of left leg below knee; E11.51 Type 2 diabetes mellitus with diabetic peripheral angiopathy without gangrene | CPT/HCPCS: 11044; A6402 ==

== ENCOUNTER → 2017-08-10 | Outpatient (CLI) | payer MEDICARE, OTHER | END | disposition home or self-care (01) | LOC: WOU 12:30 | PROVIDERS: ATTEND Surgery | DX: T87.81 Dehiscence of amputation stump (principal); E11.622 Type 2 diabetes mellitus with other skin ulcer; L97.224 Non-pressure chronic ulcer of left calf with necrosis of bone; E11.42 Type 2 diabetes mellitus with diabetic polyneuropathy; E11.69 Type 2 diabetes mellitus with other specified complication; M86.462 Chronic osteomyelitis with draining sinus, left tibia and fibula; Z89.512 Acquired absence of left leg below knee; I10 Essential (primary) hypertension; Z79.02 Long term (current) use of antithrombotics/antiplatelets; Z79.899 Other long term (current) drug therapy; E11.51 Type 2 diabetes mellitus with diabetic peripheral angiopathy without gangrene | CPT/HCPCS: 11042; A6402 ==

== ENCOUNTER → 2017-08-14 | Outpatient (CLI) | payer MEDICARE, OTHER | END | disposition home or self-care (01) | LOC: WOU 12:20 | PROVIDERS: ATTEND Surgery | DX: T87.81 Dehiscence of amputation stump (principal); T86.828 Other complications of skin graft (allograft) (autograft); E11.622 Type 2 diabetes mellitus with other skin ulcer; L97.224 Non-pressure chronic ulcer of left calf with necrosis of bone; E11.42 Type 2 diabetes mellitus with diabetic polyneuropathy; E11.69 Type 2 diabetes mellitus with other specified complication; M86.462 Chronic osteomyelitis with draining sinus, left tibia and fibula; Z87.891 Personal history of nicotine dependence; I10 Essential (primary) hypertension; Z79.02 Long term (current) use of antithrombotics/antiplatelets | CPT/HCPCS: 11044; A6402 ==

== ENCOUNTER 2017-08-16 09:49 | Outpatient (CLI) | payer MEDICARE, OTHER | END 2017-08-16 23:59 | disposition home or self-care (01) | LOC: NM 09:49 | PROVIDERS: ATTEND Surgery | DX: M25.562 Pain in left knee (principal); Z89.612 Acquired absence of left leg above knee | CPT/HCPCS: 78315; A9503 ==

== ENCOUNTER 2017-08-21 12:25 | Outpatient (CLI) | payer MEDICARE, OTHER | END 2017-08-21 23:59 | disposition home or self-care (01) | LOC: WOU 12:25 | PROVIDERS: ATTEND Surgery | DX: T87.81 Dehiscence of amputation stump (principal); T86.828 Other complications of skin graft (allograft) (autograft); E11.622 Type 2 diabetes mellitus with other skin ulcer; L97.224 Non-pressure chronic ulcer of left calf with necrosis of bone; E11.42 Type 2 diabetes mellitus with diabetic polyneuropathy; E11.69 Type 2 diabetes mellitus with other specified complication; M86.462 Chronic osteomyelitis with draining sinus, left tibia and fibula; Z89.512 Acquired absence of left leg below knee | CPT/HCPCS: 15271; A6402; Q4172 ×2 ==

== ENCOUNTER 2017-08-28 12:23 | Outpatient (CLI) | payer MEDICARE, OTHER | END 2017-08-28 23:59 | disposition home or self-care (01) | LOC: WOU 12:23 | PROVIDERS: ATTEND Surgery | DX: T87.81 Dehiscence of amputation stump (principal); E11.622 Type 2 diabetes mellitus with other skin ulcer; L97.224 Non-pressure chronic ulcer of left calf with necrosis of bone; E11.42 Type 2 diabetes mellitus with diabetic polyneuropathy; E11.69 Type 2 diabetes mellitus with other specified complication; M86.462 Chronic osteomyelitis with draining sinus, left tibia and fibula; Z89.512 Acquired absence of left leg below knee; E11.51 Type 2 diabetes mellitus with diabetic peripheral angiopathy without gangrene; Z87.891 Personal history of nicotine dependence; I10 Essential (primary) hypertension; Z79.02 Long term (current) use of antithrombotics/antiplatelets | CPT/HCPCS: 15271; A6402; Q4172 ×2 ==

== ENCOUNTER 2017-09-04 12:26 | Outpatient (CLI) | payer MEDICARE, OTHER | END 2017-09-04 23:59 | disposition home or self-care (01) | LOC: WOU 12:26 | PROVIDERS: ATTEND Surgery | DX: T87.81 Dehiscence of amputation stump (principal); E11.622 Type 2 diabetes mellitus with other skin ulcer; L97.224 Non-pressure chronic ulcer of left calf with necrosis of bone; E11.42 Type 2 diabetes mellitus with diabetic polyneuropathy; E11.69 Type 2 diabetes mellitus with other specified complication; M86.462 Chronic osteomyelitis with draining sinus, left tibia and fibula; Z89.512 Acquired absence of left leg below knee; Z87.891 Personal history of nicotine dependence; Z79.02 Long term (current) use of antithrombotics/antiplatelets; Z79.899 Other long term (current) drug therapy | CPT/HCPCS: 11044; A6402 ==

== ENCOUNTER 2017-09-11 10:28 | Outpatient (CLI) | payer MEDICARE, OTHER | END 2017-09-11 23:59 | disposition home or self-care (01) | LOC: WOU 10:28 | PROVIDERS: ATTEND Surgery | DX: T87.81 Dehiscence of amputation stump (principal); T86.828 Other complications of skin graft (allograft) (autograft); E11.622 Type 2 diabetes mellitus with other skin ulcer; L97.224 Non-pressure chronic ulcer of left calf with necrosis of bone; E11.42 Type 2 diabetes mellitus with diabetic polyneuropathy; E11.69 Type 2 diabetes mellitus with other specified complication; M86.462 Chronic osteomyelitis with draining sinus, left tibia and fibula; Z89.512 Acquired absence of left leg below knee; Z87.891 Personal history of nicotine dependence; Z79.02 Long term (current) use of antithrombotics/antiplatelets; Z79.899 Other long term (current) drug therapy; E11.51 Type 2 diabetes mellitus with diabetic peripheral angiopathy without gangrene | CPT/HCPCS: 15271; A6402 ==

== ENCOUNTER 2017-09-18 09:08 | Outpatient (CLI) | payer MEDICARE, OTHER | END 2017-09-18 23:59 | disposition home or self-care (01) | LOC: RAD 09:08 | PROVIDERS: ATTEND Surgery | DX: S81.002D Unspecified open wound, left knee, subsequent encounter (principal); X58.XXXD Exposure to other specified factors, subsequent encounter; Z89.9 Acquired absence of limb, unspecified | CPT/HCPCS: 73564-TC ==

== ENCOUNTER 2017-09-18 09:24 | Outpatient (CLI) | payer MEDICARE, OTHER | END 2017-09-18 23:59 | disposition home or self-care (01) | LOC: WOU 09:24 | PROVIDERS: ATTEND Surgery | DX: T87.81 Dehiscence of amputation stump (principal); T86.828 Other complications of skin graft (allograft) (autograft); E11.622 Type 2 diabetes mellitus with other skin ulcer; E11.42 Type 2 diabetes mellitus with diabetic polyneuropathy; E11.69 Type 2 diabetes mellitus with other specified complication; M86.462 Chronic osteomyelitis with draining sinus, left tibia and fibula; Z89.512 Acquired absence of left leg below knee; M79.5 Residual foreign body in soft tissue; E11.51 Type 2 diabetes mellitus with diabetic peripheral angiopathy without gangrene; L97.826 Non-pressure chronic ulcer of other part of left lower leg with bone involvement without evidence of necrosis | CPT/HCPCS: 11042; 11044; A6402 ==

== ENCOUNTER 2017-09-25 09:00 | Outpatient (CLI) | payer MEDICARE, OTHER | END 2017-09-25 23:59 | disposition home or self-care (01) | LOC: WOU 09:00 | PROVIDERS: ATTEND Surgery | DX: T87.81 Dehiscence of amputation stump (principal); T86.828 Other complications of skin graft (allograft) (autograft); E11.622 Type 2 diabetes mellitus with other skin ulcer; L97.224 Non-pressure chronic ulcer of left calf with necrosis of bone; E11.42 Type 2 diabetes mellitus with diabetic polyneuropathy; Z89.512 Acquired absence of left leg below knee; Z18.10 Retained metal fragments, unspecified; E11.51 Type 2 diabetes mellitus with diabetic peripheral angiopathy without gangrene | CPT/HCPCS: 11044; A6402 ==

== ENCOUNTER 2017-10-02 12:20 | Outpatient (CLI) | payer MEDICARE, OTHER | END 2017-10-02 23:59 | disposition home or self-care (01) | LOC: WOU 12:20 | PROVIDERS: ATTEND Surgery | DX: T86.828 Other complications of skin graft (allograft) (autograft) (principal); T87.81 Dehiscence of amputation stump; E11.622 Type 2 diabetes mellitus with other skin ulcer; L97.224 Non-pressure chronic ulcer of left calf with necrosis of bone; E11.42 Type 2 diabetes mellitus with diabetic polyneuropathy; E11.69 Type 2 diabetes mellitus with other specified complication; M86.462 Chronic osteomyelitis with draining sinus, left tibia and fibula; Z89.512 Acquired absence of left leg below knee; E11.51 Type 2 diabetes mellitus with diabetic peripheral angiopathy without gangrene; Z79.02 Long term (current) use of antithrombotics/antiplatelets; Z79.899 Other long term (current) drug therapy | CPT/HCPCS: 11044; A6402 ==

== ENCOUNTER 2017-10-05 05:02 | Inpatient (IN) | payer MEDICARE, OTHER ==
[~2017-10-05] VITALS: Ht 188 cm; Wt 75.3 kg
[2017-10-05 05:15] VITALS: BP 133/76
[2017-10-05] MEDS ORDERED: BUPIVACAINE 0.25% 75 MG/30 ML VIAL ONE (06:27)
[2017-10-05] MEDS ORDERED: LIDOCAINE 1%-EPI 1:100,000 20 ML VIAL ONE (06:27)
[2017-10-05] MEDS ORDERED: ANESTHESIA TRAY IN PYXIS 1 EA TRAY MC ONE (06:28)
[2017-10-05] MEDS ORDERED: VANCOMYCIN 1 GM in IV D5W 250 ML IV SCH (06:30)
--- NOTE | 2017-10-05 06:45 | NUR ---
MS RN NOTES OR PICKED UP PT. PT AWAKE & RESPONSIVE. NOT IN ANY DISTRESS. NO SOB NOTED. DENIES ANY PAIN OR DISCOMFORT AT THIS TIME. WITH IV-HL PATENT & INTACT. MONITORED ACCORDINGLY. CALL LIGHT WITHIN REACH. BED IN LOWEST POSITION. SR UP X 2 FOR SAFETY. ENDORSED ACCORDINGLY.
[2017-10-05] MEDS ORDERED: FENTANYL PF 100MCG/2ML AMPUL ONE (06:54)
[2017-10-05] MEDS ORDERED: hydrALAZINE HCL IV 20 MG VIAL ONE (09:19)
[2017-10-05 10:20] VITALS: BP 116/65
--- NOTE | 2017-10-05 10:20 | NUR ---
PT JUST CAME BACK FROM [facility] S/P LLE DEBRIDEMENT AND FLAP RECONSTRUCTION,REVISION AMPUTATION WITH VAC PLACEMENT OF LOWER EXTREMITY WHICH WILL BE SENT HOME WITH THE PT.WOUND VAC SUPPLIES AT BEDSIDE WHICH WILL BE FOLLOWED UP BY HOME HEALTH WHICH WILL BE ARRANGED BY LITHOGRAPHIC PROOFER.CALLED EDITH VALLE AND MADE AWARE.
--- NOTE | 2017-10-05 10:20 | NUR ---
RECEIVED PT ALERT,AWAKE AND VERBALLY RESPONSIVE.RESPIRATIONS NON LABORED ON ROOM AIR.WITH WOUND VAC ATTACHED TO HIS LLE WITH MINIMAL SEROSANGUINOUS DRAINAGE.DRESSING INTACT AND DRY. AT BEDSIDE.DR BOSS STATED THAT THE PT CAN GO HOME TODAY AND THE SX WAS DONE OUTPATIENT AND THERE IS NO NEED FOR HOSPITALIST TO SEE HIM.WILL FOLLOW UP WITH [employer].CALL LIGHT PLACED WITHIN REACH.
--- NOTE | 2017-10-05 10:25 | NUR ---
PT IS C/O NOT VOIDING YET.PROVIDED URINAL AND FLUIDS AT BEDSIDE.PT WILL BE ON REGULAR DIET AND WILL MONITOR.WITH STABLE V/S.
--- NOTE | 2017-10-05 11:18 | NUR ---
PT VOIDED ABOUT 200 ML YELLOW URINE OUTPUT VIA URINAL.
--- NOTE | 2017-10-05 12:00 | NUR ---
DISCHARGED PT HOME WITH [facility])FOLLOW UP FOR WOUND CARE AND WOUND VAC MGT.DISCHARGE INSTRUCTIONS GIVEN..PT REFUSED MRSA NARES SCREENING SAYING HE'S IN A HURRY TO GO HOME BEFORE IT RAINS.IV H/L TO LFA REMOVED WITHOUT BLEEDING NOTED.DISCHARGED PT WITH WOUND VAC INTACT TO LLE BKA WOUND.PT BROUGHT HIS WOUND VAC SUPPLIES HOME WELL.
== END 2017-10-05 12:00 | disposition home or self-care (01) | DRG 465 ==
LOC: DS 05:02 → MEDSG2 05:10
PROVIDERS: ADMIT Surgery; ATTEND Surgery
PROC: 0QBF0ZZ Excision of Left Patella, Open Approach (ICD-10-PCS; 2017-10-05)
PROC: 0HRLX73 Replacement of Left Lower Leg Skin with Autologous Tissue Substitute, Full Thickness, External Approach (ICD-10-PCS; 2017-10-05)
PROC: 0HXLXZZ Transfer Left Lower Leg Skin, External Approach (ICD-10-PCS; principal; 2017-10-05 07:10)
DX: T87.81 Dehiscence of amputation stump (principal); Z89.512 Acquired absence of left leg below knee; X58.XXXA Exposure to other specified factors, initial encounter; Y93.9 Activity, unspecified; Y92.9 Unspecified place or not applicable; Y83.5 Amputation of limb(s) as the cause of abnormal reaction of the patient, or of later complication, without mention of misadventure at the time of the procedure; Y92.009 Unspecified place in unspecified non-institutional (private) residence as the place of occurrence of the external cause
CPT/HCPCS: J0360; J3010; J3370; J3490; J7060; Z7610

== ENCOUNTER 2017-10-09 09:00 | Outpatient (CLI) | payer MEDICARE, OTHER | END 2017-10-09 23:59 | disposition home health service (06) | LOC: WOU 09:00 | PROVIDERS: ATTEND Surgery | DX: T86.828 Other complications of skin graft (allograft) (autograft) (principal); T87.81 Dehiscence of amputation stump; E11.622 Type 2 diabetes mellitus with other skin ulcer; L97.224 Non-pressure chronic ulcer of left calf with necrosis of bone; E11.42 Type 2 diabetes mellitus with diabetic polyneuropathy; E11.69 Type 2 diabetes mellitus with other specified complication; M86.462 Chronic osteomyelitis with draining sinus, left tibia and fibula; Z89.512 Acquired absence of left leg below knee; Z87.828 Personal history of other (healed) physical injury and trauma; Z87.891 Personal history of nicotine dependence; E11.51 Type 2 diabetes mellitus with diabetic peripheral angiopathy without gangrene; Z79.02 Long term (current) use of antithrombotics/antiplatelets; Z79.899 Other long term (current) drug therapy | CPT/HCPCS: 11043; A6402 ==

== ENCOUNTER 2017-10-09 10:09 | Outpatient (CLI) | payer MEDICARE, OTHER ==
[2017-10-09 10:11] VITALS: BP 109/74
== END 2017-10-09 23:59 | disposition home or self-care (01) ==
LOC: MSC 10:09
PROVIDERS: ATTEND Internal Medicine
DX: T81.89XD Other complications of procedures, not elsewhere classified, subsequent encounter (principal); Z89.512 Acquired absence of left leg below knee; E11.9 Type 2 diabetes mellitus without complications; H40.9 Unspecified glaucoma; F12.90 Cannabis use, unspecified, uncomplicated; Z87.891 Personal history of nicotine dependence; Z79.02 Long term (current) use of antithrombotics/antiplatelets; Z88.8 Allergy status to other drugs, medicaments and biological substances

== ENCOUNTER 2017-10-12 11:30 | Outpatient (CLI) | payer MEDICARE, OTHER | END 2017-10-12 23:59 | disposition home or self-care (01) | LOC: WOU 11:30 | PROVIDERS: ATTEND Surgery | DX: T87.81 Dehiscence of amputation stump (principal); T86.821 Skin graft (allograft) (autograft) failure; E11.622 Type 2 diabetes mellitus with other skin ulcer; Z89.512 Acquired absence of left leg below knee; E11.40 Type 2 diabetes mellitus with diabetic neuropathy, unspecified; M86.462 Chronic osteomyelitis with draining sinus, left tibia and fibula; Z87.891 Personal history of nicotine dependence; E11.51 Type 2 diabetes mellitus with diabetic peripheral angiopathy without gangrene; L97.825 Non-pressure chronic ulcer of other part of left lower leg with muscle involvement without evidence of necrosis; Z79.82 Long term (current) use of aspirin; Z79.899 Other long term (current) drug therapy; I10 Essential (primary) hypertension | CPT/HCPCS: 11043; A6402 ==

== ENCOUNTER 2017-10-16 11:55 | Outpatient (CLI) | payer MEDICARE, OTHER ==
[2017-10-16] MEDS ORDERED: OXYC80TA40 PO (15:40)
[2017-10-16] MEDS ORDERED: OLME20TA13 PO (15:40)
[2017-10-16] MEDS ORDERED: ATOR40TA PO (15:40)
[2017-10-16] MEDS ORDERED: ASPI-1169 PO (15:40)
[2017-10-16] MEDS ORDERED: OXYC30TA2 PO (15:40)
== END 2017-10-16 23:59 | disposition home or self-care (01) ==
LOC: WOU 11:55
PROVIDERS: ATTEND Surgery
DX: T86.828 Other complications of skin graft (allograft) (autograft) (principal); T87.81 Dehiscence of amputation stump; E11.622 Type 2 diabetes mellitus with other skin ulcer; L97.826 Non-pressure chronic ulcer of other part of left lower leg with bone involvement without evidence of necrosis; E11.69 Type 2 diabetes mellitus with other specified complication; M86.462 Chronic osteomyelitis with draining sinus, left tibia and fibula; I10 Essential (primary) hypertension; Z87.891 Personal history of nicotine dependence; Z79.02 Long term (current) use of antithrombotics/antiplatelets; R53.83 Other fatigue; E11.51 Type 2 diabetes mellitus with diabetic peripheral angiopathy without gangrene
CPT/HCPCS: 11044; 11047; A6402 ×2

== ENCOUNTER 2017-10-16 14:07 | Inpatient (IN) | payer MEDICARE, OTHER ==
[~2017-10-16] VITALS: Ht 188 cm; Wt 74.8 kg
--- NOTE | 2017-10-16 14:35 | NUR ---
PT BB SELF C/O NONE HEALING LLL SURGICAL AMUPATION BELOW THE KNEE. PT STATES HIS ORTHO SPECIALIST DR. KARYN CHAPMAN REQUESTED HIM TO BE SEEN BY ER PHYSICIAN. REDNESS AND FOUL ODOR NOTED COMING FROM AMPUTATION SITE. LLL BONE VISIBLE UPON ASSESSMENT. PT DENIES PAIN. PT STATES HE IS ON ANTIOBIOTICS S/P SURGERY. PT NOTED TO BE USING CRUTCHES TO AMBULATED. PT RESP EVEN AND UNLABORED. NO S/S OF ACUTE DISTRESS NOTED. SKIN WNL. PT GOWNED AND PLACED ON MONITOR AND POX. AWAITING MD FOR EVAL.
--- NOTE | 2017-10-16 14:40 | NUR ---
BEDSIDE FOR PT EVAL.
[2017-10-16] MEDS ORDERED: ONDANSETRON HCL/PF 4 MG/2 ML VIAL ONE (14:58)
[2017-10-16 14:59] LABS: BASOPHILS % (AUTO) 0.4 % (0.0-2.0); EOSINOPHILS % (AUTO) 6.3 % (0.0-6.0); HEMATOCRIT 34 % (39-51); HEMOGLOBIN 11.5 g/dL (13.5-17.5); LYMPHOCYTES # (AUTO) 1.2 /CMM (0.8-4.8); LYMPHOCYTES % (AUTO) 13.5 % (20.0-44.0); MEAN CORPUSCULAR HGB CONC 34 g/dl (31.0-36.0); MEAN CORPUSCULAR VOLUME 91 fL (80-96); MONOCYTES # (AUTO) 0.4 /CMM (0.1-1.30); NEUTROPHILS # (AUTO) 6.5 /CMM (1.8-8.9); NEUTROPHILS % (AUTO) 74.8 % (43.0-81.0); PLATELET COUNT (AUTO) 429 /CMM (150-450); RDW COEFFICIENT OF VARIATION 13.6 (11.5-15.0); RED BLOOD CELL COUNT(AUTO) 3.69 MIL/uL (4.5-6.0); WHITE BLOOD COUNT (AUTO) 8.6 K/uL (4.3-11.0)
[2017-10-16] MEDS ORDERED: MORPHINE SULFATE INJ 4 MG/ML DISP.SYRIN ONE (14:59)
[2017-10-16] MEDS ORDERED: IV NS 0.9% 1,000 ML BAG IV ONE (15:00)
[2017-10-16] MEDS ORDERED: MORPHINE SULFATE INJ 2 MG/ML DISP.SYRIN IV ONE (15:00)
[2017-10-16] MEDS ORDERED: ONDANSETRON HCL/PF 4 MG/2 ML VIAL IVP ONE (15:00)
--- NOTE | 2017-10-16 15:02 | NUR ---
RADIOLOGY BEDSIDE FOR X-RAY
--- NOTE | 2017-10-16 15:05 | NUR ---
PT MEDICATED PER MD ORDERS.
[2017-10-16 15:08] LABS: CALCIUM, SERUM 9.4 mg/dL (8.5-10.1); CARBON DIOXIDE 30 mmol/L (21-32); CHLORIDE 102 mmol/L (98-107); CREATININE 1.4 mg/dL (0.6-1.3); GLUCOSE 100 mg/dL (74-106); POTASSIUM 4.1 mmol/L (3.5-5.1); SODIUM SERUM 138 mmol/L (136-145); UREA NITROGEN, BLOOD 17 mg/dL (7-18)
[2017-10-16 15:13] LABS: INR 1.04 (0.85-1.15)
[2017-10-16 15:14] LABS: ALANINE AMINOTRANSFERASE 15 U/L (12-78); ALKALINE PHOSPHATASE 77 U/L (46-116); ASPARTATE AMINOTRANSFERASE 17 U/L (15-37); BILIRUBIN,DIRECT 0.2 mg/dL (0.0-0.2); BILIRUBIN,TOTAL 0.4 mg/dL (0.2-1.0); TOTAL PROTEIN, SERUM 7.4 g/dL (6.4-8.2)
[2017-10-16 15:16] LABS: TROPONIN I < 0.017 ng/mL (0.00-0.056)
[2017-10-16] MEDS ORDERED: VANCOMYCIN 1 GM VIAL ONE (15:20)
[2017-10-16] MEDS ORDERED: CEFTRIAXONE 1 G VIAL ONE (15:20)
[2017-10-16] MEDS ORDERED: VANCOMYCIN 1 GM in IV D5W 250 ML IV ONE (15:30)
[2017-10-16] MEDS ORDERED: CEFTRIAXONE 1 G in IV D5W 50 ML IV ONE (15:30)
[2017-10-16 15:33] LABS: APPEARANCE,URINE Cloudy (CLEAR); BILIRUBIN,URINE SMALL (NEGATIVE); BLOOD, URINE Negative Ery/uL (NEGATIVE); KETONES,URINE Negative (NEGATIVE); LEUKOCYTE ESTERASE ,URINE Negative (NEGATIVE); NITRITE, URINE Negative (NEGATIVE); PH,URINE 5.5 (5.0-8.0); PROTEIN,URINE Negative (NEGATIVE); UGLUCOSE Negative (NEGATIVE)
[2017-10-16 15:34] LABS: COLOR,URINE Dark Yellow (YELLOW)
[2017-10-16 15:39] LABS: BACTERIA,URINE None seen /HPF (None Seen); SQUAMOUS EPITHELIAL CELL,UR Few /HPF (None Seen); WBC,URINE 0-3 /HPF (0-3)
[2017-10-16] MEDS ORDERED: ATOR40TA PO (15:40)
[2017-10-16] MEDS ORDERED: ASPI-1169 PO (15:40)
[2017-10-16] MEDS ORDERED: OLME20TA13 PO (15:40)
[2017-10-16] MEDS ORDERED: OXYC30TA2 PO (15:40)
[2017-10-16] MEDS ORDERED: OXYC80TA40 PO (15:40)
--- NOTE | 2017-10-16 16:19 | NUR ---
REPORT GIVEN TO CHAPIN LITTLE FOR JYOTI.
[2017-10-16 17:20] VITALS: BP 125/86
--- NOTE | 2017-10-16 17:20 | NUR ---
MS RN NOTES 67 YEARS OLD MALE ADMITTED FOR INFECTED WOUND LEFT LOWER LEG, S/P SURGICAL AMPUTATION PER REPORT. PATIENT IS A/O X4, COOPERATIVE. TOLERATING ROOM AIR, NO SOB. PAIN AGGRAVATED WITH MOVEMENT. FALL AND SAFETY PRECAUTION MAINTAIN. WILL CONT TO MONITOR.
[2017-10-16] MEDS ORDERED: HYDROCODONE/APAP 5/325MG 1 EACH TABLET PO PRN (18:00)
[2017-10-16] MEDS ORDERED: MAGNESIUM HYDROXIDE 30 ML UDC PO PRN (18:00)
[2017-10-16] MEDS ORDERED: MAG HYDROX/AL HYDROX/SIMETH 30 ML UDC PO PRN (18:00)
[2017-10-16] MEDS ORDERED: ACETAMINOPHEN 325 MG TABLET PO PRN (18:00)
[2017-10-16] MEDS ORDERED: ONDANSETRON HCL/PF 4 MG/2 ML VIAL IVP PRN (18:00)
[2017-10-16] MEDS ORDERED: Z GUARD REMEDY 2 OZ OINT TP PRN (18:00)
[2017-10-16] MEDS ORDERED: ZOLPIDEM TARTRATE 5 MG TABLET PO PRN (18:00)
[2017-10-16] MEDS: IV NS 0.9% 1,000 ML IV PRN (18:32)
--- NOTE | 2017-10-16 19:30 | NUR ---
RN NOTE; RECEIVED PT IN BED AWAKE AND ALERT. BREATHING EVENLY. NO SOB. NAD. SKIN WARM AND DRY. DRESSING ON L STUMP CDI. NO BLEEDING , NO DRAINAGE. NEEDS ATTENDED. BED LOW LOCKED. CALL LIGHT WITHIN REACH. WILL CONT TO MONITOR , SEND A MESSAGE T DR. HAROON GARCIA FOR POSSIBLE ATB ORDER. AWAITING FOR HIS CALL BACK.
--- NOTE | 2017-10-16 19:37 | NUR ---
MS RN CLOSING NOTES IVC IN RIGHT AC PATENT AND INTACT, STARTED ON IVF NS INFUSING AT 75ML/HR. DINNER SERVED, GOOD APPETITE. AFEBRILE, DENIES PAIN. KEPT COMFORTABLE, AND CLEAN. BLANKET PROVIDED. FALL AND SAFETY PRECAUTION MAINTAINED. ENDORSED TO NIGHT RN.
[2017-10-16 20:00] VITALS: BP 125/63
--- NOTE | 2017-10-16 20:08 | NUR ---
RECEIVED A CALL FROM DR. PATIÑO W/ A NEW ORDER FOR "VANCO TO BE DOSED BY PHARMACY". NEW ORDER NOTED .
[2017-10-16] MEDS ORDERED: FEE PK DOSING 1 MIN EA MC ONE (20:35)
[2017-10-16] MEDS ORDERED: OXYCODONE HCL 80 MG PO PRN (21:00)
[2017-10-16] MEDS: ATORVASTATIN 40 MG TABLET PO SCH (21:58)
[2017-10-17] MEDS: oxyCODONE IR immediate release 5 MG PO PRN ×2 (03:46→21:53)
--- NOTE | 2017-10-17 03:49 | NUR ---
oxy IR 30mg given as ordered per pt's request for c/o l knee/ bka pain. will cont to monitor,
[2017-10-17] MEDS: VANCOMYCIN 0.75 GM in IV D5W 250 ML IV SCH ×2 (05:36→17:00)
[2017-10-17] MEDS: IV NS 0.9% 1,000 ML IV PRN (05:38)
[2017-10-17 06:38] LABS: BASOPHILS % (AUTO) 0.1 % (0.0-2.0); EOSINOPHILS % (AUTO) 6.3 % (0.0-6.0); HEMATOCRIT 29 % (39-51); HEMOGLOBIN 9.9 g/dL (13.5-17.5); LYMPHOCYTES % (AUTO) 14.1 % (20.0-44.0); MEAN CORPUSCULAR HGB CONC 34 g/dl (31.0-36.0); MEAN CORPUSCULAR VOLUME 93 fL (80-96); MONOCYTES # (AUTO) 0.4 /CMM (0.1-1.30); MONOCYTES % (AUTO) 4.9 % (2.0-12.0); NEUTROPHILS # (AUTO) 5.5 /CMM (1.8-8.9); NEUTROPHILS % (AUTO) 74.6 % (43.0-81.0); PLATELET COUNT (AUTO) 349 /CMM (150-450); RDW COEFFICIENT OF VARIATION 14.3 (11.5-15.0); RED BLOOD CELL COUNT(AUTO) 3.11 MIL/uL (4.5-6.0); WHITE BLOOD COUNT (AUTO) 7.4 K/uL (4.3-11.0)
--- NOTE | 2017-10-17 06:55 | NUR ---
PT IN BED DOZING INTERMITTENTLY. BREATHING EVENLY. NO SOB. NO ACTIVE EVENT DURING TH NIGHT, PAIN MED GIVEN ORDERED PER PT'S REQUEST. EFFECTIVE. NEEDS ATTENDED. BED LOW LOCKED. CALL LIGHT WITHIN REACH, WILL CONT TO MONITOR AND WILL ENDORSE TO AM SHIFT FOR JYOTI .
[2017-10-17 07:15] LABS: CREATININE 1.1 mg/dL (0.6-1.3); MAGNESIUM 1.7 mg/dL (1.8-2.4); PHOSPHORUS 2.6 mg/dL (2.5-4.9); POTASSIUM 4.2 mmol/L (3.5-5.1)
[2017-10-17 08:00] VITALS: BP 103/61
--- NOTE | 2017-10-17 08:25 | NUR ---
MS RN NOTES PATIENT IS A/O X4, COOPERATIVE. BREAKFAST SERVED, GOOD APPETITE. LEFT BKA WOUND DRESSING IN PLACE, DENIES PAIN. FALL AND SAFETY PRECAUTION MAINTAINED, CALL LIGHT WITHIN REACH. WILL CONT TO MONITOR.
[2017-10-17] MEDS: Magnesium 1GM/D5W 100ML PREMIX 100 ML IV SCH ×2 (10:05→11:19)
[2017-10-17 16:00] VITALS: BP 150/80
--- NOTE | 2017-10-17 18:42 | NUR ---
MS RN CLOSING NOTES NPO MN, SURGERY TOMORROW LEFT AKA BY DR. DRAPER, PATIENT CONSENTED THE PROCEDURE, CONSENT FORM PLACE IN THE CHART. LEFT LOWER LEG WOUND, DRESSING INTACT, DENIES PAIN. MAINTAIN FALL AND SAFETY PRECAUTION. WILL ENDORSE TO ONCOMING RN.
--- NOTE | 2017-10-17 19:30 | NUR ---
RN NOTE; RECEIVED PT IN BED AWAKE AND ALERT W/ FAMILY AT THE BED SIDE BREATHING EVENLY. NO SOB. NAD. SKIN WARM AND DRY. DRESSING ON L STUMP CDI. NO BLEEDING , NO DRAINAGE. NEEDS ATTENDED. BED LOW LOCKED. CALL LIGHT WITHIN REACH. WILL CONT TO MONITOR , NPO STATUS FOR SX IN AM DISCUSSED W/ PT W/ UNDERSTANDING.
[2017-10-17 20:00] VITALS: BP_SYST 143; BP_DIAS 75; BP_DIAS 76
[2017-10-17] MEDS: ATORVASTATIN 40 MG TABLET PO SCH (21:52)
--- NOTE | 2017-10-17 21:55 | NUR ---
OXY IR GIVEN ORDERED PER PT'S REQUEST FOR C/O L BKA PAIN. WILL CONT TO MONITOR ,
[2017-10-18 04:36] LABS: CALCIUM, SERUM 7.8 mg/dL (8.5-10.1); CREATININE 1.1 mg/dL (0.6-1.3); MAGNESIUM 1.9 mg/dL (1.8-2.4); POTASSIUM 4.2 mmol/L (3.5-5.1)
[2017-10-18] MEDS: VANCOMYCIN 0.75 GM in IV D5W 250 ML IV SCH (05:07)
--- NOTE | 2017-10-18 06:45 | NUR ---
PT IN BED WAKE AND ALERT. STABLE NO ACUTE EVENT DURING THE NIGHT, NPO FOR SX TODAY. NEED ATTENDED. CALL LIGHT WITHIN REACH. WILL CONT TO MONITOR AND WILL ENDORSE TO AM SHIFT FOR JYOTI.
--- NOTE | 2017-10-18 07:40 | NUR ---
MS RN OPENING NOTE PATIENT IS ALERT AND ORIENTED X4. NO PAIN AT THIS TIME. NO SOB OR DISTRESS NOTED. CALL LIGHT WITHIN REACH, SAFETY MEASURES IMPLEMENTED. ABLE TO COMMUNICATE NEEDS. IV INTACT AND PATENT ON RIGHT AC AND LEFT AC, WITH FLUIDS RUNNING AT THIS TIME TOLERATING WELL. CURRENTLY NPO FOR SURGERY THIS AFTERNOON WITH DR. DRAPER. LABS PENDING AT THIS TIME. WILL CONTINUE TO MONITOR THROUGHOUT SHIFT
[2017-10-18 08:00] VITALS: BP 125/67
--- NOTE | 2017-10-18 09:57 | NUR ---
WOUND CARE CONSULT WOUND CARE RECEIVED CONSULT FOR LEFT LOWER LEG INFECTED WOUND. WOUND CARE WILL DEFER TO SURGICAL TEAM FOR CONSULT AND ALL TREATMENT PLANS THEY ARE CURRENTLY FOLLOWING. PATIENT WITH PABLO AT 21.
[2017-10-18] MEDS ORDERED: VANCOMYCIN 1 GM in IV D5W 250 ML IV SCH (13:00)
--- NOTE | 2017-10-18 13:10 | NUR ---
MS RN NOTE PATIENT HEADED TO OR. VITAL SIGNS STABLE. PATIENT IN NO DISTRESS. WILL CONTINUE CARE WHEN PATIENT RETURNS FROM SURGERY
[2017-10-18] MEDS ORDERED: FENTANYL PF 100MCG/2ML AMPUL ONE (13:54)
[2017-10-18] MEDS ORDERED: KETAMINE HCL (500MG/10ML) 50 MG/ML VIAL ONE (13:54)
[2017-10-18] MEDS ORDERED: BUPIVACAINE 0.25% 75 MG/30 ML VIAL ONE ×2 (14:52→14:55)
[2017-10-18] MEDS ORDERED: ONDANSETRON HCL/PF 4 MG/2 ML VIAL ONE (15:40)
[2017-10-18] MEDS ORDERED: hydrALAZINE HCL IV 20 MG VIAL ONE (15:44)
--- NOTE | 2017-10-18 16:15 | NUR ---
MS RN NOTE UNABLE TO GIVE 1300 VANCO IV. PATIENT CURRENTLY STILL IN SURGERY, INFORMED PHARMACY
[2017-10-18] MEDS: VANCOMYCIN 1 GM in IV D5W 250 ML IV SCH (17:38)
--- NOTE | 2017-10-18 18:46 | NUR ---
MS RN CLOSING NOTE PATIENT RESTING COMFORTABLY AT THIS TIME. NO PAIN NOTED. NO SOB OR DISTRESS NOTED. CALL LIGHT WITHIN REACH AT ALL TIMES. SAFETY MEASURES IMPLEMENTED, ABLE TO COMMUNICATE NEEDS. ALL DUE MEDICATIONS GIVEN ORDERED. S/P LEFT ABOVE THE KNEE AMPUTATION. ON CONTACT ISOLATION FOR MRSA WOUND, ISOLATION PRECAUTIONS IN PLACE. CLEAR LIQUID DIET. CHACHO DRAIN IN PLACE AND TO DRAIN QSHIFT OR NEEDED. IV INTACT AND PATENT NO REDNESS OR SWELLING WITH IV FLUIDS RUNNING TOLERATED. WILL ENDORSE TO MATTRESS FILLER NURSE FOR JYOTI
[2017-10-18 20:00] VITALS: BP 135/71
[2017-10-18] MEDS: HYDROMORPHONE INJ 2 MG/ML DISP.SYRIN IV PRN (20:27)
[2017-10-18] MEDS: ATORVASTATIN 40 MG TABLET PO SCH (21:41)
[2017-10-18] MEDS: oxyCODONE IR immediate release 5 MG PO PRN (22:10)
[2017-10-19] MEDS: VANCOMYCIN 1 GM in IV D5W 250 ML IV SCH ×2 (06:09→17:06)
[2017-10-19] MEDS: IV NS 0.9% 1,000 ML IV PRN ×2 (06:11→21:37)
[2017-10-19 06:32] LABS: CALCIUM, SERUM 8.1 mg/dL (8.5-10.1); CREATININE 0.9 mg/dL (0.6-1.3); POTASSIUM 4.5 mmol/L (3.5-5.1)
--- NOTE | 2017-10-19 06:59 | NUR ---
MS RN NOTES AWAKE & RESPONSIVE. NOT IN ANY DISTRESS. NO SOB NOTED. DENIES ANY PAIN OR DISCOMFORT AT THIS TIME. WITH IVF INFUSING WELL. MONITORED ACCORDINGLY. CALL LIGHT WITHIN REACH. BED IN LOWEST POSITION. SR UP X2 FOR SAFETY. WILL ENDORSE TO NEXT SHIFT.
--- NOTE | 2017-10-19 07:33 | NUR ---
MS RN OPENING NOTE PATIENT IS RESTING COMFORTABLY AT THIS TIME. NO FACIAL GRIMACING NOTED FOR PAIN. NO SOB OR DISTRESS NOTED. CALL LIGHT WITHIN REACH. SAFETY MEASURES IMPLEMENTED. ABLE TO COMMUNICATE NEEDS. IV INTACT AND PATENT WITH IV FLUIDS RUNNING AT THIS TIME, TOLERATING WELL. S/P LEFT ABOVE THE KNEE AMPUTATION WITH DR. DRAPER DRESSING IN PLACE ADN TO BE CHANGED ON MONDAY BY . CHACHO DRAIN QSHIFT OR NEEDED. WILL CONTINUE TO MONITOR THROUGHOUT SHIFT.
[2017-10-19 08:00] VITALS: BP 118/70
[2017-10-19] MEDS: HYDROMORPHONE INJ 2 MG/ML DISP.SYRIN IV PRN (11:12)
[2017-10-19 16:00] VITALS: BP 112/76
--- NOTE | 2017-10-19 18:43 | NUR ---
MS RN CLOSING NOTE PATIENT IS RESTING COMFORTABLY AT THIS TIME. NO PAIN NOTED. NO SOB OR DISTRESS NOTED. CALL LIGHT WITHIN REACH AT ALL TIMES. SAFETY MEASURES IMPLEMENTED. ABLE TO COMMUNICATE NEEDS. ALL DUE MEDICATIONS GIVEN ORDERED. ALL NURSING CARE NEEDS ATTENDED TO NEEDED. LEFT AKA DRESSING INTACT AND PATENT NO BLEEDING NOTED. CHACHO DRAIN IN PLACE. WILL ENDORSE TO TRIMMING CUTTER MACHINE NURSE FOR JYOTI
[2017-10-19 20:00] VITALS: BP 108/64
[2017-10-19] MEDS: ATORVASTATIN 40 MG TABLET PO SCH (21:37)
[2017-10-19] MEDS: oxyCODONE IR immediate release 5 MG PO PRN (21:37)
--- NOTE | 2017-10-20 06:35 | NUR ---
MS RN NOTES AWAKE & RESPONSIVE. NOT IN ANY DISTRESS. NO SOB NOTED. DENIES ANY PAIN OR DISCOMFORT AT THIS TIME. WITH IV-HL PATENT & INTACT. MONITORED ACCORDINGLY. CALL LIGHT WITHIN REACH. BED IN LOWEST POSITION. SR UP X2 FOR SAFETY. WILL ENDORSE TO NEXT SHIFT.
--- NOTE | 2017-10-20 07:10 | NUR ---
RN OPEN NOTES RECEIVED REPORT FROM LUBRICATOR GRANULATOR NURSE. PATIENT IS IN BED. AOX3. BED IN LOW POSITION, LOCKED AND TWO SIDE RAILS ARE UP, CALL LIGHT WITHIN REACH FOR SAFETY. NO SIGNS AND SYMPTOMS OF DISTRESS. WILL CONTINUE TO MONITOR AND ASSESS PATIENT
[2017-10-20 07:51] LABS: CALCIUM, SERUM 8.2 mg/dL (8.5-10.1); POTASSIUM 3.9 mmol/L (3.5-5.1)
[2017-10-20] MEDS: VANCOMYCIN 1 GM in IV D5W 250 ML IV SCH (08:06)
[2017-10-20 08:17] VITALS: BP 125/69
--- NOTE | 2017-10-20 10:30 | NUR ---
TIMOTHY IS AT BEDSIDE TO REINFORCE DRESSING
--- NOTE | 2017-10-20 11:20 | NUR ---
CITY BAIL[employer] NOTES DISCHARGE ORDER RECEIVED AND CARRIED OUT. NO SIGNS AND SYMPTOMS OF DISTRESS. AT BEDSIDE. ALL DISCHARGE INFORMATION EXPLAINED TO PATIENT AND AND BOTH VERBALIZED UNDERSTANDING. ALL PERSONAL BELONGING WITH PATIENT AT TIME OF DISCHARGE. PATIENT SIGNED BOTH BELONGING LIST FORM AND DISCHARGE INSTRUCTION; FORMS PLACED AT THE CHART. HOME MEDICATIONS RETURNED TO PATIENT. IV SITE REMOVED. ID BAND REMOVED. PATIENT PICKED UP BY HIS VIA A PRIVATE CAR AND DROVE HOME. PATIENT ESCORTED TO MAIN LOBBY VIA A WHEELCHAIR AND A SAFETY COMPANION. NO NEW CONCERNS UPON DISCHARGE. UNABLE TO TAKE PICTURES DUE TO DRESSING TO BE CHANGED BY MD ONLY.
== END 2017-10-20 11:20 | disposition home or self-care (01) | DRG 474 ==
LOC: ER 14:09 → MEDSG2 16:17
PROVIDERS: ADMIT Internal Medicine; ATTEND Internal Medicine
PROC: 0Y6D0Z2 Detachment at Left Upper Leg, Mid, Open Approach (ICD-10-PCS; principal; 2017-10-18 14:20)
DX: T87.44 Infection of amputation stump, left lower extremity (principal); E43 Unspecified severe protein-calorie malnutrition; N17.0 Acute kidney failure with tubular necrosis; M86.68 Other chronic osteomyelitis, other site; T86.821 Skin graft (allograft) (autograft) failure; E11.69 Type 2 diabetes mellitus with other specified complication; I10 Essential (primary) hypertension; G89.4 Chronic pain syndrome; D63.8 Anemia in other chronic diseases classified elsewhere; I25.10 Atherosclerotic heart disease of native coronary artery without angina pectoris; H40.9 Unspecified glaucoma; Z91.041 Radiographic dye allergy status; B95.62 Methicillin resistant Staphylococcus aureus infection as the cause of diseases classified elsewhere; E78.5 Hyperlipidemia, unspecified; Z98.61 Coronary angioplasty status; Z87.891 Personal history of nicotine dependence; Z89.512 Acquired absence of left leg below knee; W34.00XS Accidental discharge from unspecified firearms or gun, sequela; Y83.5 Amputation of limb(s) as the cause of abnormal reaction of the patient, or of later complication, without mention of misadventure at the time of the procedure; Y92.009 Unspecified place in unspecified non-institutional (private) residence as the place of occurrence of the external cause
CPT/HCPCS: 36415; 71045-TC; 73552; 73564-TC; 80048-TC; 80076-TC; 80202-TC; 81000-TC; 83605-TC; 83735-TC; 84100-TC; 84484-TC; 85025-TC; 85730-TC; 86850-TC; 87040-TC; 87070-TC; 87081-TC; 87086-TC; 88305-TC; 88307-TC; A4606; A6253; A6402; A6403; J0360; J0696; J1170; J2270; J2405; J2704; J3010; J3370; J3475; J3490; J7030; J7060; Z7610

== ENCOUNTER 2017-10-23 12:10 | Outpatient (CLI) | payer MEDICARE, OTHER ==
[~2017-10-23 12:10] MED LIST: ASPI-1169 PO; ATOR40TA PO; OLME20TA13 PO; OXYC30TA2 PO; OXYC80TA40 PO
== END 2017-10-23 23:59 | disposition home or self-care (01) ==
LOC: WOU 12:10
PROVIDERS: ATTEND Surgery
DX: Z47.81 Encounter for orthopedic aftercare following surgical amputation (principal); Z89.612 Acquired absence of left leg above knee; T86.828 Other complications of skin graft (allograft) (autograft); T86.821 Skin graft (allograft) (autograft) failure; E11.622 Type 2 diabetes mellitus with other skin ulcer; L97.826 Non-pressure chronic ulcer of other part of left lower leg with bone involvement without evidence of necrosis; E11.51 Type 2 diabetes mellitus with diabetic peripheral angiopathy without gangrene; Z87.891 Personal history of nicotine dependence
CPT/HCPCS: A6402 ×2; G0463

== ENCOUNTER 2017-10-23 13:07 | Outpatient (CLI) | payer MEDICARE, OTHER ==
[2017-10-23 13:24] VITALS: BP 114/75
== END 2017-10-23 23:59 | disposition home or self-care (01) ==
LOC: MSC 13:07
PROVIDERS: ATTEND Internal Medicine
DX: E11.69 Type 2 diabetes mellitus with other specified complication (principal); M86.60 Other chronic osteomyelitis, unspecified site; Z89.612 Acquired absence of left leg above knee; E78.5 Hyperlipidemia, unspecified; I25.10 Atherosclerotic heart disease of native coronary artery without angina pectoris; I10 Essential (primary) hypertension; Z95.5 Presence of coronary angioplasty implant and graft; H40.9 Unspecified glaucoma; G89.29 Other chronic pain; Z79.891 Long term (current) use of opiate analgesic; Z79.82 Long term (current) use of aspirin; Z87.891 Personal history of nicotine dependence; D64.9 Anemia, unspecified

== ENCOUNTER 2017-10-30 13:44 | Outpatient (CLI) | payer MEDICARE, OTHER | END 2017-10-30 23:59 | disposition home or self-care (01) | LOC: WOU 13:44 | PROVIDERS: ATTEND Surgery | DX: Z47.81 Encounter for orthopedic aftercare following surgical amputation (principal); Z89.612 Acquired absence of left leg above knee; Z87.891 Personal history of nicotine dependence; E11.51 Type 2 diabetes mellitus with diabetic peripheral angiopathy without gangrene; E11.69 Type 2 diabetes mellitus with other specified complication; M86.462 Chronic osteomyelitis with draining sinus, left tibia and fibula; Z79.02 Long term (current) use of antithrombotics/antiplatelets | CPT/HCPCS: A6402; G0463 ==

== ENCOUNTER 2017-10-31 14:00 | Outpatient (CLI) | payer MEDICARE, OTHER | END 2017-10-31 23:59 | disposition home health service (06) | LOC: VASLAB 14:00 | PROVIDERS: ATTEND Surgery Vascular Surgery | DX: Z47.81 Encounter for orthopedic aftercare following surgical amputation (principal); T81.89XD Other complications of procedures, not elsewhere classified, subsequent encounter; Z89.612 Acquired absence of left leg above knee; Z98.890 Other specified postprocedural states | CPT/HCPCS: A6402; G0463 ==

== ENCOUNTER 2017-11-28 13:37 | Outpatient (CLI) | payer MEDICARE, OTHER | END 2017-11-28 23:59 | disposition home health service (06) | LOC: VASLAB 13:37 | PROVIDERS: ATTEND Surgery Vascular Surgery | DX: Z47.81 Encounter for orthopedic aftercare following surgical amputation (principal); Z89.512 Acquired absence of left leg below knee; E11.69 Type 2 diabetes mellitus with other specified complication; M86.462 Chronic osteomyelitis with draining sinus, left tibia and fibula; Z79.02 Long term (current) use of antithrombotics/antiplatelets | CPT/HCPCS: A6402; G0463 ==

== ENCOUNTER 2018-03-07 13:57 | Outpatient (CLI) | payer MEDICARE, OTHER | END 2018-03-07 23:59 | disposition home or self-care (01) | LOC: VASLAB 13:57 | PROVIDERS: ATTEND Surgery Vascular Surgery | DX: Z09 Encounter for follow-up examination after completed treatment for conditions other than malignant neoplasm (principal); Z47.81 Encounter for orthopedic aftercare following surgical amputation; Z89.612 Acquired absence of left leg above knee; E11.9 Type 2 diabetes mellitus without complications; E11.69 Type 2 diabetes mellitus with other specified complication; M86.462 Chronic osteomyelitis with draining sinus, left tibia and fibula | CPT/HCPCS: G0463; Z7610 ==